=== PATIENT | male | born 1965 | race Caucasian/White ===

== ENCOUNTER 2018-02-02 15:45 | Observation (INO) | payer MEDICAID ==
[~2018-02-02] VITALS: Ht 188 cm; Wt 58.2 kg
[2018-02-02 17:07] LABS: ALANINE AMINOTRANSFERASE 104 U/L (12-78); ALBUMIN 3.2 g/dL (3.4-5.0); ANION GAP 13 mmol/L (5-15); CALCIUM 9.2 mg/dL (8.5-10.1); CHLORIDE 95 mmol/L (98-107)
[2018-02-02 17:09] LABS: ALKALINE PHOSPHATASE 200 U/L (45-117); TOTAL PROTEIN 10.5 g/dL (6.4-8.2)
[2018-02-02 17:18] LABS: MEAN CORPUSCULAR HEMOGLOBIN 32.4 pg (27.5-34.5); MEAN CORPUSCULAR HGB CONC 33.3 g/dL (33.2-36.2); MEAN CORPUSCULAR VOLUME 97.3 fL (81-97); MEAN PLATELET VOLUME 9.9 fL (7.4-10.4); PLATELET COUNT 100 x10^3/uL (130-400); RED BLOOD COUNT 4.38 x10^6/uL (4.38-5.82); RED CELL DISTRIBUTION WIDTH 18.6 % (9.4-14.8)
[2018-02-02 17:22] LABS: BASOPHILS # (AUTO) 0.05 x10^3/uL (0-0.1); BASOPHILS % (AUTO) 1 % (0-1); EOSINOPHILS % (AUTO) 1 % (1-7); LYMPHOCYTES # (AUTO) 1.02 x10^3/uL (1-3.4); LYMPHOCYTES % (AUTO) 14 % (22-44); MD MORPH REVIEW ONLY; MONOCYTES # (AUTO) 0.76 x10^3/uL (0.2-0.8); MONOCYTES % (AUTO) 10 % (2-9); NEUTROPHILS % (AUTO) 74 % (42-75)
[2018-02-02 17:24] LABS: <PLATELET ESTIMATE> DECREASED; ANISOCYTOSIS 1+; LARGE PLATELETS 1+
[2018-02-02] MEDS ORDERED: FUROSEMIDE 40 MG/4 ML IVPush ONE (18:30)
[2018-02-02] MEDS ORDERED: INSULIN REGULAR 100 UNITS/ML, 3ML VIAL IVPush ONE (18:30)
[2018-02-02] MEDS ORDERED: DEXTROSE 50%, 50ML SYRINGE IVPush ONE (18:30)
[2018-02-02] MEDS ORDERED: ALBUTEROL 0.5%, 20ML NPPB ONE (18:30)
[2018-02-02] MEDS ORDERED: SODIUM BICARB 8.4%, 50ML SYRINGE IVPush ONE (18:30)
[2018-02-02] MEDS ORDERED: ALBUTEROL/IPRATROPIUM 2.5MG/0.5MG, 3 ML ONE (18:31)
[2018-02-02] MEDS ORDERED: DEXTROSE 50%, 50ML SYRINGE ONE (18:35)
[2018-02-02] MEDS ORDERED: FUROSEMIDE 40 MG/4 ML ONE (18:35)
[2018-02-02] MEDS ORDERED: INSULIN REGULAR 100 UNITS/ML, 3ML VIAL ONE (18:37)
[2018-02-02] MEDS ORDERED: SODIUM BICARB 8.4%, 50ML SYRINGE ONE (18:37)
[2018-02-02] MEDS ORDERED: NICOTINE 21 MG/24 HR PATCH.TD24 TD SCH (19:00)
[2018-02-02] MEDS ORDERED: POLYETHYLENE GLYCOL 17 GM PACKET PO PRN (19:00)
[2018-02-02] MEDS ORDERED: ONDANSETRON ODT 4 MG PO PRN (19:00)
[2018-02-02] MEDS ORDERED: BISACODYL 10 MG SUPP PR PRN (19:00)
[2018-02-02] MEDS ORDERED: ACETAMINOPHEN 325 MG TABLET PO PRN (19:00)
[2018-02-02 19:18] VITALS: BP 111/55
[2018-02-02] MEDS ORDERED: HEPARIN 5,000 UNITS/ML, 1ML SQ SCH (20:00)
[2018-02-02] MEDS ORDERED: SODIUM CHLORIDE FLUSH 10ML SYR IVF SCH (21:00)
[2018-02-03] MEDS ORDERED: ASPIRIN 81 MG TABLET EC PO SCH (06:00)
[2018-02-03] MEDS ORDERED: SENNA/DOCUSATE TABLET PO SCH (09:00)
== END 2018-02-02 20:33 | disposition left against medical advice (07) ==
LOC: ED 17:18 → EDIP 18:30 → 4WST 20:00
PROVIDERS: ADMIT Internal Medicine; ATTEND Internal Medicine
DX: N18.6 End stage renal disease (principal); E11.22 Type 2 diabetes mellitus with diabetic chronic kidney disease; E11.51 Type 2 diabetes mellitus with diabetic peripheral angiopathy without gangrene; E44.1 Mild protein-calorie malnutrition; I50.22 Chronic systolic (congestive) heart failure; E87.1 Hypo-osmolality and hyponatremia; E87.5 Hyperkalemia; F17.210 Nicotine dependence, cigarettes, uncomplicated; D69.6 Thrombocytopenia, unspecified; R17 Unspecified jaundice; Z79.4 Long term (current) use of insulin; Z83.3 Family history of diabetes mellitus; Z99.2 Dependence on renal dialysis; D75.89 Other specified diseases of blood and blood-forming organs
CPT/HCPCS: 36415; 80053; 82607; 82746; 85025; 93005; 94640; 96374; 96375; 99284; G0378; J1940

== ENCOUNTER 2018-02-03 15:45 | Emergency (ER) | payer MEDICAID ==
[~2018-02-03] VITALS: Ht 188 cm; Wt 58.4 kg
[2018-02-03 16:04] VITALS: BP 111/51
[2018-02-03 16:38] LABS: BASOPHILS # (AUTO) 0.03 x10^3/uL (0-0.1); BASOPHILS % (AUTO) 0 % (0-1); EOSINOPHILS # (AUTO) 0.11 x10^3/uL (0-0.4); EOSINOPHILS % (AUTO) 1 % (1-7); LYMPHOCYTES # (AUTO) 1.02 x10^3/uL (1-3.4); LYMPHOCYTES % (AUTO) 13 % (22-44); MD NO; MEAN CORPUSCULAR HEMOGLOBIN 32.7 pg (27.5-34.5); MEAN CORPUSCULAR HGB CONC 33.4 g/dL (33.2-36.2); MEAN CORPUSCULAR VOLUME 97.9 fL (81-97); MEAN PLATELET VOLUME 9.9 fL (7.4-10.4); MONOCYTES # (AUTO) 0.65 x10^3/uL (0.2-0.8); MONOCYTES % (AUTO) 8 % (2-9); NEUTROPHILS # (AUTO) 5.93 x10^3/uL (1.8-6.8); NEUTROPHILS % (AUTO) 77 % (42-75); PLATELET COUNT 104 x10^3/uL (130-400); RED BLOOD COUNT 4.17 x10^6/uL (4.38-5.82); RED CELL DISTRIBUTION WIDTH 18.8 % (9.4-14.8)
[2018-02-03 16:50] LABS: ANION GAP 15 mmol/L (5-15); CALCIUM 9.2 mg/dL (8.5-10.1); CHLORIDE 98 mmol/L (98-107); CREATININE 6.66 mg/dL (0.7-1.3)
[2018-02-03] MEDS ORDERED: SODIUM CHLORIDE 0.9% 1,000 ML IV ONE (18:13)
[2018-02-03] MEDS ORDERED: SODIUM CHLORIDE FLUSH 10ML SYR IVF ONE (18:30)
[2018-02-03] MEDS ORDERED: ONDANSETRON 2MG/ML, 2ML IVPush ONE (18:30)
[2018-02-03 18:44] LABS: BILIRUBIN, DIRECT 1.6 mg/dL (0.1-0.2)
[2018-02-03 18:46] LABS: BILIRUBIN,INDIRECT 0.4 mg/dL (0.0-2.0); TOTAL PROTEIN 9.8 g/dL (6.4-8.2)
[2018-02-03] MEDS ORDERED: OMNIPAQUE 350 MG/ML, 100ML BOTTLE ONE (19:52)
[2018-02-03] MEDS ORDERED: SODIUM BICARBONATE 650 MG TABLET PO ONE (20:30)
[2018-02-03] MEDS: MORPHINE SULFATE 4 MG/ML, 1ML IVPush PRN (20:32)
[2018-02-04] MEDS ORDERED: ACET325S PO (17:16)
[2018-02-04] MEDS ORDERED: DIPH25CA61 PO (17:20)
[2018-02-04] MEDS ORDERED: AMIO100T4 PO (17:20)
[2018-02-04] MEDS ORDERED: DOCU100C33 PO (17:20)
[2018-02-04] MEDS ORDERED: ERGO500017 PO (17:20)
[2018-02-04] MEDS ORDERED: METO25TA35 PO (17:22)
== END 2018-02-03 21:45 ==
LOC: ED 19:08
DX: S36.892A Contusion of other intra-abdominal organs, initial encounter (principal); E11.22 Type 2 diabetes mellitus with diabetic chronic kidney disease; N18.6 End stage renal disease; Z99.2 Dependence on renal dialysis; Z91.19 Patient's noncompliance with other medical treatment and regimen; X58.XXXA Exposure to other specified factors, initial encounter; Y93.89 Activity, other specified; Y92.89 Other specified places as the place of occurrence of the external cause; Y99.8 Other external cause status
CPT/HCPCS: 36415; 74177; 80048; 80076; 85025; 93005; 99284; J7030; Q9967; 82040

== ENCOUNTER 2018-02-04 13:10 | Inpatient (IN) | payer MEDICAID ==
[~2018-02-04] VITALS: Ht 188 cm; Wt 58.6 kg
[2018-02-04] MEDS ORDERED: SODIUM CHLORIDE FLUSH 10ML SYR IVF ONE (13:30)
[2018-02-04] MEDS ORDERED: NICOTINE 14MG/24 HR PATCH.TD24 ONE (13:40)
[2018-02-04 13:51] LABS: BASOPHILS # (AUTO) 0.06 x10^3/uL (0-0.1); BASOPHILS % (AUTO) 1 % (0-1); EOSINOPHILS # (AUTO) 0.11 x10^3/uL (0-0.4); EOSINOPHILS % (AUTO) 2 % (1-7); LYMPHOCYTES # (AUTO) 0.98 x10^3/uL (1-3.4); LYMPHOCYTES % (AUTO) 13 % (22-44); MD NO; MEAN CORPUSCULAR HEMOGLOBIN 32.5 pg (27.5-34.5); MEAN CORPUSCULAR HGB CONC 33.7 g/dL (33.2-36.2); MEAN CORPUSCULAR VOLUME 96.5 fL (81-97); MONOCYTES # (AUTO) 0.53 x10^3/uL (0.2-0.8); MONOCYTES % (AUTO) 7 % (2-9); NEUTROPHILS # (AUTO) 5.84 x10^3/uL (1.8-6.8); NEUTROPHILS % (AUTO) 78 % (42-75); PLATELET COUNT 120 x10^3/uL (130-400); RED CELL DISTRIBUTION WIDTH 18.4 % (9.4-14.8)
[2018-02-04 13:56] LABS: ALANINE AMINOTRANSFERASE 84 U/L (12-78); ALBUMIN 2.9 g/dL (3.4-5.0); ANION GAP 14 mmol/L (5-15); CALCIUM 9.2 mg/dL (8.5-10.1); CHLORIDE 99 mmol/L (98-107); CREATININE 6.99 mg/dL (0.7-1.3)
[2018-02-04 13:59] LABS: ALKALINE PHOSPHATASE 188 U/L (45-117); TOTAL PROTEIN 9.4 g/dL (6.4-8.2)
[2018-02-04] MEDS ORDERED: NICOTINE 14MG/24 HR PATCH.TD24 TD ONE (14:00)
[2018-02-04] MEDS ORDERED: NICOTINE 21 MG/24 HR PATCH.TD24 TD SCH (16:30)
[2018-02-04] MEDS ORDERED: ACETAMINOPHEN 325 MG TABLET PO PRN (16:30)
[2018-02-04] MEDS ORDERED: LIDODERM 5% PATCH TD PRN (16:30)
[2018-02-04] MEDS ORDERED: DEXTROSE 50%, 50ML SYRINGE IVPush PRN (16:30)
[2018-02-04] MEDS ORDERED: HEPARIN 5,000 UNITS/ML, 1ML SQ SCH (16:30)
[2018-02-04] MEDS ORDERED: GLUCAGON 1 MG IM PRN (16:30)
[2018-02-04] MEDS ORDERED: POLYETHYLENE GLYCOL 17 GM PACKET PO PRN (16:30)
[2018-02-04] MEDS ORDERED: DEXTROSE 4 GM TAB.CHEW PO PRN (16:30)
[2018-02-04] MEDS ORDERED: ONDANSETRON 2MG/ML, 2ML IVPush PRN (16:30)
[2018-02-04] MEDS ORDERED: BISACODYL 10 MG SUPP PR PRN (16:30)
[2018-02-04] MEDS ORDERED: ONDANSETRON ODT 4 MG PO PRN (16:30)
[2018-02-04] MEDS ORDERED: hydrALAzine 20 MG/ML, 1ML IVPush PRN (16:30)
[2018-02-04] MEDS ORDERED: DOCUSATE 100 MG CAPSULE PO PRN (16:30)
[2018-02-04] MEDS ORDERED: ACET325S PO (17:16)
[2018-02-04] MEDS ORDERED: ERGO500017 PO (17:20)
[2018-02-04] MEDS ORDERED: DIPH25CA61 PO (17:20)
[2018-02-04] MEDS ORDERED: AMIO100T4 PO (17:20)
[2018-02-04] MEDS ORDERED: DOCU100C33 PO (17:20)
[2018-02-04] MEDS ORDERED: METO25TA35 PO (17:22)
[2018-02-04] MEDS ORDERED: DIPHENHYDRAMINE 25 MG CAPSULE ONE (17:46)
[2018-02-04] MEDS ORDERED: DIPHENHYDRAMINE 25 MG CAPSULE PO ONE (18:00)
[2018-02-04] MEDS ORDERED: ERGOCALCIFEROL 50,000 UNIT CAPSULE PO SCH (19:00)
[2018-02-04 19:21] VITALS: BP 131/73
[2018-02-04] MEDS ORDERED: SODIUM CHLORIDE FLUSH 10ML SYR IVF SCH (21:00)
[2018-02-04] MEDS ORDERED: INSULIN LISPRO 100 UNITS/ML, PEN SQ-INSULIN SCH (21:00)
[2018-02-04] MEDS ORDERED: METOPROLOL TARTRATE 25 MG TABLET PO SCH (21:00)
[2018-02-05] MEDS ORDERED: AMIODARONE 200 MG TABLET PO SCH (09:00)
== END 2018-02-04 22:00 | disposition left against medical advice (07) | DRG 640 ==
LOC: ED 15:17 → EDIP 15:18 → ED 15:30 → 4EST 16:27
PROVIDERS: ADMIT Internal Medicine; ATTEND Internal Medicine
PROC: 5A1D70Z Performance of Urinary Filtration, Intermittent, Less than 6 Hours Per Day (ICD-10-PCS; principal; 2018-02-04)
DX: E87.5 Hyperkalemia (principal); E43 Unspecified severe protein-calorie malnutrition; N18.6 End stage renal disease; K66.1 Hemoperitoneum; Z68.1 Body mass index [BMI] 19.9 or less, adult; I13.2 Hypertensive heart and chronic kidney disease with heart failure and with stage 5 chronic kidney disease, or end stage renal disease; I50.42 Chronic combined systolic (congestive) and diastolic (congestive) heart failure; K76.6 Portal hypertension; N25.81 Secondary hyperparathyroidism of renal origin; D64.9 Anemia, unspecified; D69.6 Thrombocytopenia, unspecified; E11.22 Type 2 diabetes mellitus with diabetic chronic kidney disease; E11.51 Type 2 diabetes mellitus with diabetic peripheral angiopathy without gangrene; E55.9 Vitamin D deficiency, unspecified; F17.210 Nicotine dependence, cigarettes, uncomplicated; I48.91 Unspecified atrial fibrillation; K80.20 Calculus of gallbladder without cholecystitis without obstruction; L89.159 Pressure ulcer of sacral region, unspecified stage; Z83.3 Family history of diabetes mellitus; Z86.74 Personal history of sudden cardiac arrest; Z91.19 Patient's noncompliance with other medical treatment and regimen; W18.39XA Other fall on same level, initial encounter; Y93.89 Activity, other specified; Y92.89 Other specified places as the place of occurrence of the external cause; Y99.8 Other external cause status; S09.90XA Unspecified injury of head, initial encounter; Z53.21 Procedure and treatment not carried out due to patient leaving prior to being seen by health care provider
CPT/HCPCS: 36415; 70450; 80053; 82962; 83735; 84100; 85025; 93005; 99285; G0378; Q0163

== ENCOUNTER 2018-02-11 15:37 | Emergency (ER) | payer MEDICAID ==
[~2018-02-11] VITALS: Ht 188 cm; Wt 63.9 kg
[~2018-02-11 15:37] MED LIST: ACET325S PO; AMIO100T4 PO; DIPH25CA61 PO; DOCU100C33 PO; ERGO500017 PO; METO25TA35 PO
[2018-02-11 17:00] LABS: BASOPHILS # (AUTO) 0.02 x10^3/uL (0-0.1); BASOPHILS % (AUTO) 0 % (0-1); EOSINOPHILS # (AUTO) 0.08 x10^3/uL (0-0.4); EOSINOPHILS % (AUTO) 1 % (1-7); LYMPHOCYTES # (AUTO) 0.54 x10^3/uL (1-3.4); LYMPHOCYTES % (AUTO) 7 % (22-44); MD NO; MEAN CORPUSCULAR VOLUME 96.9 fL (81-97); MEAN PLATELET VOLUME 8.8 fL (7.4-10.4); MONOCYTES # (AUTO) 0.74 x10^3/uL (0.2-0.8); MONOCYTES % (AUTO) 10 % (2-9); NEUTROPHILS # (AUTO) 6.21 x10^3/uL (1.8-6.8); NEUTROPHILS % (AUTO) 82 % (42-75); PLATELET COUNT 148 x10^3/uL (130-400); RED BLOOD COUNT 3.17 x10^6/uL (4.38-5.82); RED CELL DISTRIBUTION WIDTH 17.4 % (9.4-14.8)
[2018-02-11 17:10] LABS: ALANINE AMINOTRANSFERASE 28 U/L (12-78); ALBUMIN 2.4 g/dL (3.4-5.0); ANION GAP 9 mmol/L (5-15); CALCIUM 8.5 mg/dL (8.5-10.1); CHLORIDE 102 mmol/L (98-107); CREATININE 4.25 mg/dL (0.7-1.3)
[2018-02-11 17:12] LABS: ALKALINE PHOSPHATASE 155 U/L (45-117); BILIRUBIN,TOTAL 1.5 mg/dL (0.2-1.0); TOTAL PROTEIN 8.1 g/dL (6.4-8.2)
[2018-02-11 18:00] VITALS: BP 131/69
== END 2018-02-11 18:27 | disposition home or self-care (01) ==
LOC: ED 18:06
DX: R53.1 Weakness (principal); E11.22 Type 2 diabetes mellitus with diabetic chronic kidney disease; N18.9 Chronic kidney disease, unspecified; F17.200 Nicotine dependence, unspecified, uncomplicated; E11.21 Type 2 diabetes mellitus with diabetic nephropathy
CPT/HCPCS: 36415; 71045; 80053; 83605; 85025; 87040; 93005; 99284

== ENCOUNTER 2018-02-11 23:13 | Emergency (ER) | payer MEDICAID ==
[~2018-02-11] VITALS: Ht 188 cm; Wt 62.0 kg
[2018-02-12] MEDS ORDERED: DIPHENHYDRAMINE 25 MG CAPSULE ONE (02:16)
[2018-02-12] MEDS ORDERED: DIPHENHYDRAMINE 25 MG CAPSULE PO ONE (02:30)
[2018-02-12 03:16] VITALS: BP 120/64
== END 2018-02-12 04:31 | disposition home or self-care (01) ==
LOC: ED 23:51
DX: L89.151 Pressure ulcer of sacral region, stage 1 (principal); Z00.00 Encounter for general adult medical examination without abnormal findings; Z72.9 Problem related to lifestyle, unspecified; E11.22 Type 2 diabetes mellitus with diabetic chronic kidney disease; N18.6 End stage renal disease; F17.200 Nicotine dependence, unspecified, uncomplicated; E11.21 Type 2 diabetes mellitus with diabetic nephropathy; I70.90 Unspecified atherosclerosis
CPT/HCPCS: 93005; 99283; Q0163

== ENCOUNTER 2018-03-05 20:36 | Inpatient (IN) | payer MEDICAID ==
[~2018-03-05] VITALS: Ht 188 cm; Wt 60.2 kg
--- NOTE | 2018-03-05 22:37 | NUR ---
ATTEMPTED TO REMOVED B/L FOOT DRSG, DRSG STUCK TO WOUND, PT SOAKING FEET TO LOOSEN DRSG.
--- NOTE | 2018-03-05 22:39 | NUR ---
LATE ENTRY 2100- BIB [facility] FOR C/O RIGHT LOWER CP THAT RADIATES TO B/L SIDES THAT STARTED AT 1999 TODAY, PAIN WORSE WITH PALPATION, DENIES SOB, INJURY OR CARDIAC H/X. FSBS-195, B/P-119/60, HR-100, PER EMT EKG-SR. PT ALSO PRESENTS WITH NON HEALING WOUND TO RIGHT FOOT. MONITORS APPLIED, SIDERAILS UP X2, CALL LIGHT WITHIN REACH. AWAITING ERP FOR EVAL AND ORDERS
--- NOTE | 2018-03-05 23:27 | NUR ---
WATER TREATMENT TECHNICIAN AT BEDSIDE
[2018-03-05] MEDS ORDERED: MORPHINE SULFATE 4 MG/ML, 1ML IV PRN (23:30)
[2018-03-05] MEDS ORDERED: DIPH,PERTUSS(ACELL),TET VAC/PF 0.5 ML IM-VACC ONE ×2 (23:30→23:57)
[2018-03-05] MEDS ORDERED: VANCOMYCIN PER PHARMACY IV ONE (23:30)
[2018-03-05] MEDS ORDERED: SODIUM CHLORIDE FLUSH 10ML SYR IVF ONE (23:30)
[2018-03-05] MEDS ORDERED: AMPICILLIN/SULBACTAM 3 GM in SODIUM CHLORIDE 0.9% 100 ML IVPB ONE (23:30)
--- NOTE | 2018-03-06 00:24 | NUR ---
LAB NOTES THAT THE VISIT NUMBER HAS CHANGED, THE LABS ARE RESULTED UNDER LIFETIME SUMMARY, ONLY SHOWING ONE VISIT FOR THIS DATE. REGISTRATION IS UNAWARE OF WHAT MAY HAVE OCCURRED.
[2018-03-06] MEDS ORDERED: hydrALAzine 20 MG/ML, 1ML IVPush PRN (00:30)
[2018-03-06] MEDS ORDERED: LIDODERM 5% PATCH TD PRN (00:30)
[2018-03-06] MEDS ORDERED: VANCOMYCIN PER PHARMACY MC PRN (00:30)
[2018-03-06] MEDS ORDERED: ONDANSETRON ODT 4 MG PO PRN (00:30)
[2018-03-06] MEDS ORDERED: PHARMACY MAY ADJ FOR RENAL FX MC PRN (00:30)
[2018-03-06] MEDS: HEPARIN 5,000 UNITS/ML, 1ML SQ SCH ×3 (01:00→16:13)
[2018-03-06 01:23] VITALS: BP 127/68
[2018-03-06 01:31] VITALS: BP 127/68
[2018-03-06] MEDS ORDERED: PHARMACOKINETIC MONITORING MC PRN (02:00)
[2018-03-06] MEDS ORDERED: PHARMACOKINETIC CONSULTATION MC ONE (02:00)
[2018-03-06 02:16] LABS: SEDIMENTATION RATE > 120 mm/hr (0-10)
[2018-03-06] MEDS: NICOTINE 21 MG/24 HR PATCH.TD24 TD SCH (02:16)
[2018-03-06 02:45] LABS: HCT (SEDRATE) 26.3 % (39.2-51.8)
[2018-03-06] MEDS ORDERED: VANCOMYCIN 1,000 MG in SODIUM CHLORIDE 0.9% 100 ML IV ONE (03:00)
[2018-03-06 03:21] LABS: TROPONIN I < 0.015 ng/mL (0.000-0.045)
[2018-03-06] MEDS ORDERED: VANCOMYCIN PMX 1GM/200ML 200 ML IV ONE (03:30)
[2018-03-06] MEDS: AMPICILLIN/SULBACTAM 3 GM in SODIUM CHLORIDE 0.9% 100 ML IV SCH ×3 (05:57→22:13)
[2018-03-06 08:06] VITALS: BP 132/76
[2018-03-06 09:59] LABS: MEAN CORPUSCULAR HEMOGLOBIN 31.8 pg (27.5-34.5); MEAN CORPUSCULAR HGB CONC 33.5 g/dL (33.2-36.2); MEAN CORPUSCULAR VOLUME 94.8 fL (81-97); MEAN PLATELET VOLUME 7.8 fL (7.4-10.4); PLATELET COUNT 162 x10^3/uL (130-400); RED BLOOD COUNT 2.59 x10^6/uL (4.38-5.82)
[2018-03-06 10:02] LABS: ALANINE AMINOTRANSFERASE 14 U/L (12-78); ALBUMIN 1.7 g/dL (3.4-5.0); ANION GAP 10 mmol/L (5-15); CALCIUM 7.9 mg/dL (8.5-10.1); CHLORIDE 102 mmol/L (98-107); CREATININE 3.86 mg/dL (0.7-1.3)
[2018-03-06 10:06] LABS: ALKALINE PHOSPHATASE 127 U/L (45-117); BILIRUBIN,TOTAL 0.9 mg/dL (0.2-1.0); TOTAL PROTEIN 7.5 g/dL (6.4-8.2); TROPONIN I < 0.015 ng/mL (0.000-0.045)
[2018-03-06 10:40] LABS: BASOPHILS % (AUTO) 0 % (0-1); EOSINOPHILS # (AUTO) 0.07 x10^3/uL (0-0.4); EOSINOPHILS % (AUTO) 0 % (1-7); LYMPHOCYTES # (AUTO) 1.12 x10^3/uL (1-3.4); LYMPHOCYTES % (AUTO) 7 % (22-44); MD SCAN; MONOCYTES # (AUTO) 0.99 x10^3/uL (0.2-0.8); MONOCYTES % (AUTO) 7 % (2-9); NEUTROPHILS # (AUTO) 13.03 x10^3/uL (1.8-6.8); NEUTROPHILS % (AUTO) 86 % (42-75)
[2018-03-06] MEDS ORDERED: ARANESP 60 MCG/ML **ESRD SQ SCH (12:00)
[2018-03-06 12:53] VITALS: BP 126/76
[2018-03-06] MEDS ORDERED: POTASSIUM CHLORIDE 20 MEQ TAB.ER.PRT PO ONE (13:30)
[2018-03-06 20:00] VITALS: BP 135/71
[2018-03-07] MEDS: HEPARIN 5,000 UNITS/ML, 1ML SQ SCH ×3 (01:00→09:18)
[2018-03-07] MEDS: NICOTINE 21 MG/24 HR PATCH.TD24 TD SCH (01:18)
[2018-03-07 01:37] VITALS: BP 109/54
[2018-03-07 05:47] LABS: CLOSTRIDIUM DIFFICILE ANTIGEN POSITIVE; CLOSTRIDIUM DIFFICILE TOXIN POSITIVE (Negative)
[2018-03-07 05:50] LABS: ALBUMIN 1.6 g/dL (3.4-5.0); ANION GAP 7 mmol/L (5-15); CALCIUM 7.8 mg/dL (8.5-10.1); CHLORIDE 102 mmol/L (98-107); CREATININE 4.23 mg/dL (0.7-1.3)
[2018-03-07 05:53] LABS: VANCOMYCIN,RANDOM 13.1 mcg/mL
[2018-03-07 06:00] LABS: MEAN CORPUSCULAR HGB CONC 33.7 g/dL (33.2-36.2); MEAN PLATELET VOLUME 8.2 fL (7.4-10.4); PLATELET COUNT 174 x10^3/uL (130-400); RED BLOOD COUNT 2.66 x10^6/uL (4.38-5.82); RED CELL DISTRIBUTION WIDTH 14.9 % (9.4-14.8)
[2018-03-07] MEDS ORDERED: VANCOMYCIN PMX 1GM/200ML 200 ML IV ONE (06:00)
[2018-03-07] MEDS: METOPROLOL SUCCINATE 25 MG TAB.ER.24H PO SCH (06:13)
[2018-03-07 06:37] LABS: BASOPHILS # (AUTO) 0.02 x10^3/uL (0-0.1); BASOPHILS % (AUTO) 0 % (0-1); EOSINOPHILS # (AUTO) 0.08 x10^3/uL (0-0.4); EOSINOPHILS % (AUTO) 1 % (1-7); LYMPHOCYTES # (AUTO) 1.24 x10^3/uL (1-3.4); LYMPHOCYTES % (AUTO) 10 % (22-44); MD SCAN; MONOCYTES # (AUTO) 0.77 x10^3/uL (0.2-0.8); MONOCYTES % (AUTO) 6 % (2-9); NEUTROPHILS # (AUTO) 10.76 x10^3/uL (1.8-6.8); NEUTROPHILS % (AUTO) 84 % (42-75)
[2018-03-07] MEDS: AMPICILLIN/SULBACTAM 3 GM in SODIUM CHLORIDE 0.9% 100 ML IV SCH (07:28)
[2018-03-07 07:49] VITALS: BP 121/73
[2018-03-07] MEDS: LISINOPRIL 5 MG TABLET PO SCH (09:58)
[2018-03-07] MEDS: MEROPENEM 500 MG in SODIUM CHLORIDE 0.9% 100 ML IV SCH (13:22)
[2018-03-07] MEDS: VANCOMYCIN 50 MG/ML ORAL SUSP PO SCH ×2 (13:22→20:03)
[2018-03-07 14:13] VITALS: BP 125/73
[2018-03-07] MEDS: DIPHENHYDRAMINE 50 MG CAPSULE PO PRN (18:17)
[2018-03-07] MEDS ORDERED: AMPICILLIN/SULBACTAM 3 GM in SODIUM CHLORIDE 0.9% 100 ML IV SCH (19:00)
[2018-03-07 21:04] VITALS: BP 122/76
[2018-03-08] MEDS: HEPARIN 5,000 UNITS/ML, 1ML SQ SCH ×3 (01:00→17:00)
[2018-03-08 01:56] VITALS: BP 118/73
[2018-03-08] MEDS: NICOTINE 21 MG/24 HR PATCH.TD24 TD SCH (02:21)
[2018-03-08] MEDS: VANCOMYCIN 50 MG/ML ORAL SUSP PO SCH ×4 (02:21→22:44)
[2018-03-08 06:10] VITALS: BP 122/70
[2018-03-08] MEDS: METOPROLOL SUCCINATE 25 MG TAB.ER.24H PO SCH (06:11)
[2018-03-08 07:44] VITALS: BP 117/68
[2018-03-08] MEDS: LISINOPRIL 5 MG TABLET PO SCH (09:00)
[2018-03-08 10:40] LABS: MEAN CORPUSCULAR HEMOGLOBIN 32.1 pg (27.5-34.5); MEAN CORPUSCULAR HGB CONC 33.9 g/dL (33.2-36.2); MEAN CORPUSCULAR VOLUME 94.6 fL (81-97); MEAN PLATELET VOLUME 8.4 fL (7.4-10.4); PLATELET COUNT 179 x10^3/uL (130-400); RED BLOOD COUNT 2.45 x10^6/uL (4.38-5.82); RED CELL DISTRIBUTION WIDTH 14.7 % (9.4-14.8)
[2018-03-08 10:41] LABS: ANION GAP 7 mmol/L (5-15); CHLORIDE 101 mmol/L (98-107); CREATININE 4.95 mg/dL (0.7-1.3)
[2018-03-08] MEDS ORDERED: DAPTOMYCIN IV SCH (11:00)
[2018-03-08] MEDS ORDERED: SODIUM CHLORIDE 0.9% IV SCH (11:00)
[2018-03-08 11:12] LABS: BASOPHILS # (AUTO) 0.03 x10^3/uL (0-0.1); BASOPHILS % (AUTO) 0 % (0-1); EOSINOPHILS # (AUTO) 0.18 x10^3/uL (0-0.4); EOSINOPHILS % (AUTO) 2 % (1-7); LYMPHOCYTES # (AUTO) 0.89 x10^3/uL (1-3.4); LYMPHOCYTES % (AUTO) 8 % (22-44); MD SCAN; MONOCYTES # (AUTO) 0.65 x10^3/uL (0.2-0.8); MONOCYTES % (AUTO) 6 % (2-9); NEUTROPHILS # (AUTO) 9.01 x10^3/uL (1.8-6.8); NEUTROPHILS % (AUTO) 84 % (42-75)
[2018-03-08] MEDS: MEROPENEM 500 MG in SODIUM CHLORIDE 0.9% 100 ML IV SCH (11:53)
[2018-03-08] MEDS ORDERED: SEVELAMER HCL 800MG TABLET PO SCH (12:00)
[2018-03-08 12:36] VITALS: BP 122/73
[2018-03-08] MEDS: SEVELAMER CARBONATE 800MG TAB PO SCH ×2 (12:56→18:01)
[2018-03-08] MEDS: DIPHENHYDRAMINE 50 MG CAPSULE PO PRN (15:02)
[2018-03-08 21:18] VITALS: BP 127/68
[2018-03-09] MEDS: HEPARIN 5,000 UNITS/ML, 1ML SQ SCH ×3 (00:50→17:00)
[2018-03-09] MEDS: DIPHENHYDRAMINE 50 MG CAPSULE PO PRN ×2 (00:56→13:59)
[2018-03-09] MEDS: NICOTINE 21 MG/24 HR PATCH.TD24 TD SCH (00:57)
[2018-03-09 03:30] VITALS: BP 116/63
[2018-03-09 05:36] VITALS: BP 131/74
[2018-03-09] MEDS: VANCOMYCIN 50 MG/ML ORAL SUSP PO SCH ×3 (05:37→18:23)
[2018-03-09] MEDS: METOPROLOL SUCCINATE 25 MG TAB.ER.24H PO SCH (05:37)
[2018-03-09 05:43] LABS: BASOPHILS # (AUTO) 0.01 x10^3/uL (0-0.1); BASOPHILS % (AUTO) 0 % (0-1); EOSINOPHILS # (AUTO) 0.09 x10^3/uL (0-0.4); EOSINOPHILS % (AUTO) 1 % (1-7); LYMPHOCYTES # (AUTO) 0.95 x10^3/uL (1-3.4); LYMPHOCYTES % (AUTO) 10 % (22-44); MD NO; MEAN CORPUSCULAR HEMOGLOBIN 32.7 pg (27.5-34.5); MEAN CORPUSCULAR HGB CONC 34.6 g/dL (33.2-36.2); MEAN CORPUSCULAR VOLUME 94.5 fL (81-97); MEAN PLATELET VOLUME 8.5 fL (7.4-10.4); MONOCYTES # (AUTO) 0.68 x10^3/uL (0.2-0.8); MONOCYTES % (AUTO) 7 % (2-9); NEUTROPHILS # (AUTO) 8.06 x10^3/uL (1.8-6.8); NEUTROPHILS % (AUTO) 82 % (42-75); PLATELET COUNT 179 x10^3/uL (130-400); RED BLOOD COUNT 2.44 x10^6/uL (4.38-5.82); RED CELL DISTRIBUTION WIDTH 14.4 % (9.4-14.8)
[2018-03-09 05:56] LABS: ANION GAP 7 mmol/L (5-15); CALCIUM 7.8 mg/dL (8.5-10.1); CHLORIDE 102 mmol/L (98-107); CREATININE 3.24 mg/dL (0.7-1.3)
[2018-03-09 08:03] VITALS: BP 123/71
[2018-03-09] MEDS: SEVELAMER CARBONATE 800MG TAB PO SCH ×3 (08:22→17:00)
[2018-03-09] MEDS: LISINOPRIL 5 MG TABLET PO SCH (08:22)
[2018-03-09] MEDS ORDERED: PROPOFOL 10 MG/ML, 20ML ONE (10:05)
[2018-03-09] MEDS: MEROPENEM 500 MG in SODIUM CHLORIDE 0.9% 100 ML IV SCH (12:14)
[2018-03-09 14:46] VITALS: BP 126/74
[2018-03-09] MEDS ORDERED: hydrALAzine 20 MG/ML, 1ML IV PRN (19:00)
[2018-03-09] MEDS ORDERED: LABETALOL 5MG/ML, 20ML IV PRN (19:00)
[2018-03-09] MEDS ORDERED: DIPHENHYDRAMINE 50 MG/ML, 1ML IVPush PRN (19:00)
[2018-03-09] MEDS ORDERED: PROMETHAZINE 25 MG/ML, 1ML IV PRN (19:00)
[2018-03-09] MEDS ORDERED: HALOPERIDOL 5 MG/ML IV PRN (19:00)
[2018-03-09] MEDS ORDERED: METOPROLOL 1 MG/ML, 5ML IV PRN (19:00)
[2018-03-09] MEDS ORDERED: FENTANYL PF 100 MCG/2ML IV PRN (19:00)
[2018-03-09] MEDS ORDERED: FENTANYL PF 100 MCG/2ML ONE ×2 (20:06→20:43)
[2018-03-09] MEDS ORDERED: HYDROmorphone 2 MG/ML, 1ML ONE (20:43)
[2018-03-09] MEDS ORDERED: OXYcodone 5 MG/5 ML ORAL.SOL UDC ONE (20:43)
[2018-03-09 21:30] VITALS: BP 120/75
[2018-03-10] MEDS: VANCOMYCIN 50 MG/ML ORAL SUSP PO SCH ×4 (00:21→17:59)
[2018-03-10] MEDS: NICOTINE 21 MG/24 HR PATCH.TD24 TD SCH (00:21)
[2018-03-10] MEDS: HEPARIN 5,000 UNITS/ML, 1ML SQ SCH ×3 (00:22→17:59)
[2018-03-10] MEDS: DIPHENHYDRAMINE 50 MG CAPSULE PO PRN ×2 (00:49→20:30)
[2018-03-10 02:19] VITALS: BP 120/72
[2018-03-10] MEDS: METOPROLOL SUCCINATE 25 MG TAB.ER.24H PO SCH (06:03)
[2018-03-10 06:26] LABS: BASOPHILS # (AUTO) 0.04 x10^3/uL (0-0.1); BASOPHILS % (AUTO) 0 % (0-1); EOSINOPHILS # (AUTO) 0.11 x10^3/uL (0-0.4); EOSINOPHILS % (AUTO) 1 % (1-7); LYMPHOCYTES # (AUTO) 0.96 x10^3/uL (1-3.4); LYMPHOCYTES % (AUTO) 9 % (22-44); MD NO; MEAN CORPUSCULAR HEMOGLOBIN 32.6 pg (27.5-34.5); MEAN CORPUSCULAR HGB CONC 34.1 g/dL (33.2-36.2); MEAN CORPUSCULAR VOLUME 95.5 fL (81-97); MONOCYTES # (AUTO) 0.65 x10^3/uL (0.2-0.8); MONOCYTES % (AUTO) 6 % (2-9); NEUTROPHILS # (AUTO) 9.46 x10^3/uL (1.8-6.8); NEUTROPHILS % (AUTO) 84 % (42-75); PLATELET COUNT 196 x10^3/uL (130-400); RED BLOOD COUNT 2.47 x10^6/uL (4.38-5.82)
[2018-03-10 06:29] LABS: ANION GAP 8 mmol/L (5-15); CALCIUM 7.9 mg/dL (8.5-10.1); CHLORIDE 103 mmol/L (98-107)
[2018-03-10 07:26] VITALS: BP 124/75
[2018-03-10] MEDS: SEVELAMER CARBONATE 800MG TAB PO SCH ×3 (09:21→17:59)
[2018-03-10] MEDS: LISINOPRIL 5 MG TABLET PO SCH (09:22)
[2018-03-10] MEDS: MEROPENEM 500 MG in SODIUM CHLORIDE 0.9% 100 ML IV SCH (12:49)
[2018-03-10 13:42] VITALS: BP 126/78
[2018-03-10 19:58] VITALS: BP 134/75
[2018-03-11] MEDS: VANCOMYCIN 50 MG/ML ORAL SUSP PO SCH ×4 (00:23→17:28)
[2018-03-11] MEDS: NICOTINE 21 MG/24 HR PATCH.TD24 TD SCH (00:24)
[2018-03-11] MEDS: HEPARIN 5,000 UNITS/ML, 1ML SQ SCH ×3 (00:24→17:28)
[2018-03-11 01:47] VITALS: BP 125/74
[2018-03-11] MEDS: METOPROLOL SUCCINATE 25 MG TAB.ER.24H PO SCH (05:56)
[2018-03-11 07:48] VITALS: BP 128/76
[2018-03-11] MEDS: SEVELAMER CARBONATE 800MG TAB PO SCH ×3 (09:02→17:27)
[2018-03-11] MEDS: LISINOPRIL 5 MG TABLET PO SCH (09:03)
[2018-03-11] MEDS ORDERED: AMPICILLIN/SULBACTAM 1,500 MG in SODIUM CHLORIDE 0.9% 50 ML IV SCH (10:00)
[2018-03-11] MEDS: DIPHENHYDRAMINE 50 MG CAPSULE PO PRN ×2 (13:24→20:46)
[2018-03-11 14:43] VITALS: BP 132/79
[2018-03-11 19:42] VITALS: BP 129/71
[2018-03-12] MEDS: HEPARIN 5,000 UNITS/ML, 1ML SQ SCH ×3 (00:37→17:56)
[2018-03-12] MEDS: VANCOMYCIN 50 MG/ML ORAL SUSP PO SCH ×4 (00:37→17:56)
[2018-03-12] MEDS: NICOTINE 21 MG/24 HR PATCH.TD24 TD SCH (00:37)
[2018-03-12 01:09] VITALS: BP 136/80
[2018-03-12] MEDS: METOPROLOL SUCCINATE 25 MG TAB.ER.24H PO SCH (06:11)
[2018-03-12 07:35] VITALS: BP 132/78
[2018-03-12] MEDS: DIPHENHYDRAMINE 50 MG CAPSULE PO PRN (08:54)
[2018-03-12] MEDS: SEVELAMER CARBONATE 800MG TAB PO SCH ×3 (08:54→17:56)
[2018-03-12] MEDS: LISINOPRIL 5 MG TABLET PO SCH (08:55)
[2018-03-12] MEDS ORDERED: AMPICILLIN/SULBACTAM 3 GM in SODIUM CHLORIDE 0.9% 50 ML IV SCH (10:00)
[2018-03-12 14:24] VITALS: BP 121/69
[2018-03-12] MEDS: AMPICILLIN/SULBACTAM 3 GM in SODIUM CHLORIDE 0.9% 100 ML IV SCH (15:58)
[2018-03-12 18:50] VITALS: BP 142/78
[2018-03-13] MEDS: VANCOMYCIN 50 MG/ML ORAL SUSP PO SCH ×4 (00:39→19:18)
[2018-03-13] MEDS: HEPARIN 5,000 UNITS/ML, 1ML SQ SCH ×3 (00:39→19:18)
[2018-03-13] MEDS: NICOTINE 21 MG/24 HR PATCH.TD24 TD SCH (00:39)
[2018-03-13] MEDS: DIPHENHYDRAMINE 50 MG CAPSULE PO PRN ×2 (00:51→23:37)
[2018-03-13 01:39] VITALS: BP 128/72
[2018-03-13 05:50] LABS: MEAN CORPUSCULAR HEMOGLOBIN 32.2 pg (27.5-34.5); MEAN CORPUSCULAR HGB CONC 33.6 g/dL (33.2-36.2); MEAN CORPUSCULAR VOLUME 95.8 fL (81-97); MEAN PLATELET VOLUME 8.7 fL (7.4-10.4); PLATELET COUNT 231 x10^3/uL (130-400); RED BLOOD COUNT 2.53 x10^6/uL (4.38-5.82); RED CELL DISTRIBUTION WIDTH 14.9 % (9.4-14.8)
[2018-03-13 06:00] LABS: ANION GAP 5 mmol/L (5-15); CALCIUM 8.3 mg/dL (8.5-10.1); CHLORIDE 101 mmol/L (98-107)
[2018-03-13 06:01] LABS: CREATININE 2.99 mg/dL (0.7-1.3)
[2018-03-13] MEDS: METOPROLOL SUCCINATE 25 MG TAB.ER.24H PO SCH (06:01)
[2018-03-13 06:23] LABS: BASOPHILS # (AUTO) 0.05 x10^3/uL (0-0.1); BASOPHILS % (AUTO) 1 % (0-1); EOSINOPHILS # (AUTO) 0.13 x10^3/uL (0-0.4); EOSINOPHILS % (AUTO) 2 % (1-7); LYMPHOCYTES # (AUTO) 1.75 x10^3/uL (1-3.4); LYMPHOCYTES % (AUTO) 22 % (22-44); MD SCAN; MONOCYTES # (AUTO) 0.64 x10^3/uL (0.2-0.8); MONOCYTES % (AUTO) 8 % (2-9); NEUTROPHILS # (AUTO) 5.56 x10^3/uL (1.8-6.8); NEUTROPHILS % (AUTO) 68 % (42-75)
[2018-03-13 07:48] VITALS: BP 121/70
[2018-03-13] MEDS: SEVELAMER CARBONATE 800MG TAB PO SCH ×3 (08:00→16:55)
[2018-03-13] MEDS: LISINOPRIL 5 MG TABLET PO SCH (08:51)
[2018-03-13 12:32] VITALS: BP 125/69
[2018-03-13] MEDS ORDERED: ARANESP 60 MCG/ML **ESRD SQ SCH (15:47)
[2018-03-13 19:10] VITALS: BP 125/70
[2018-03-14] MEDS: VANCOMYCIN 50 MG/ML ORAL SUSP PO SCH ×4 (00:42→23:09)
[2018-03-14] MEDS: NICOTINE 21 MG/24 HR PATCH.TD24 TD SCH (00:43)
[2018-03-14 02:00] VITALS: BP 120/75
[2018-03-14] MEDS: METOPROLOL SUCCINATE 25 MG TAB.ER.24H PO SCH (05:29)
[2018-03-14 06:05] LABS: BASOPHILS # (AUTO) 0.07 x10^3/uL (0-0.1); BASOPHILS % (AUTO) 1 % (0-1); EOSINOPHILS # (AUTO) 0.08 x10^3/uL (0-0.4); EOSINOPHILS % (AUTO) 1 % (1-7); LYMPHOCYTES # (AUTO) 1.85 x10^3/uL (1-3.4); LYMPHOCYTES % (AUTO) 26 % (22-44); MD NO; MEAN CORPUSCULAR HEMOGLOBIN 31.7 pg (27.5-34.5); MEAN CORPUSCULAR HGB CONC 33.1 g/dL (33.2-36.2); MEAN CORPUSCULAR VOLUME 95.6 fL (81-97); MEAN PLATELET VOLUME 8.8 fL (7.4-10.4); MONOCYTES # (AUTO) 0.72 x10^3/uL (0.2-0.8); MONOCYTES % (AUTO) 10 % (2-9); NEUTROPHILS # (AUTO) 4.44 x10^3/uL (1.8-6.8); NEUTROPHILS % (AUTO) 62 % (42-75); PLATELET COUNT 209 x10^3/uL (130-400); RED BLOOD COUNT 2.47 x10^6/uL (4.38-5.82); RED CELL DISTRIBUTION WIDTH 14.8 % (9.4-14.8)
[2018-03-14 06:16] LABS: ANION GAP 6 mmol/L (5-15); CHLORIDE 102 mmol/L (98-107)
[2018-03-14 06:59] VITALS: BP 128/76
[2018-03-14] MEDS: SEVELAMER CARBONATE 800MG TAB PO SCH ×3 (08:00→17:00)
[2018-03-14] MEDS: HEPARIN 5,000 UNITS/ML, 1ML SQ SCH ×2 (09:00→20:16)
[2018-03-14 12:42] VITALS: BP 110/69
[2018-03-14] MEDS ORDERED: PROPOFOL 50 ML ONE (13:20)
[2018-03-14] MEDS ORDERED: FENTANYL PF 100 MCG/2ML ONE ×2 (13:23→13:27)
[2018-03-14] MEDS ORDERED: OXYcodone 5 MG/5 ML ORAL.SOL UDC ONE (13:28)
[2018-03-14] MEDS ORDERED: MIDAZOLAM 1 MG/ML, 2ML ONE (13:30)
[2018-03-14] MEDS ORDERED: EPHEDRINE 50 MG/ML, 1ML IM PRN (14:00)
[2018-03-14] MEDS ORDERED: PROMETHAZINE 12.5 MG SUPP PR PRN (14:00)
[2018-03-14] MEDS ORDERED: FENTANYL PF 100 MCG/2ML IV PRN (14:00)
[2018-03-14] MEDS ORDERED: MORPHINE SULFATE 4 MG/ML, 1ML IVPush PRN (14:00)
[2018-03-14] MEDS ORDERED: OXYcodone 5 MG/5 ML ORAL.SOL UDC PO PRN (14:00)
[2018-03-14] MEDS ORDERED: PROMETHAZINE 25 MG SUPP PR PRN (14:00)
[2018-03-14] MEDS ORDERED: ONDANSETRON 2MG/ML, 2ML IV PRN (14:00)
[2018-03-14] MEDS ORDERED: ONDANSETRON ODT 8 MG PO PRN (14:00)
[2018-03-14] MEDS ORDERED: MIDAZOLAM 1 MG/ML, 2ML IV PRN (14:00)
[2018-03-14] MEDS ORDERED: PROMETHAZINE 25 MG/ML, 1ML IV PRN (14:00)
[2018-03-14] MEDS: CARVEDILOL 6.25 MG TABLET PO SCH (18:30)
[2018-03-14 20:18] VITALS: BP 117/66
[2018-03-14] MEDS: DIPHENHYDRAMINE 50 MG CAPSULE PO PRN (23:09)
[2018-03-15] VITALS (12 sets, daily range): BP systolic 91–127; BP diastolic 53–75
[2018-03-15] MEDS: NICOTINE 21 MG/24 HR PATCH.TD24 TD SCH (00:48)
[2018-03-15] MEDS: CARVEDILOL 6.25 MG TABLET PO SCH (04:49)
[2018-03-15] MEDS: VANCOMYCIN 50 MG/ML ORAL SUSP PO SCH ×4 (04:49→22:50)
[2018-03-15 05:15] LABS: MEAN CORPUSCULAR HEMOGLOBIN 33.2 pg (27.5-34.5); MEAN CORPUSCULAR HGB CONC 34.4 g/dL (33.2-36.2); MEAN CORPUSCULAR VOLUME 96.5 fL (81-97); MEAN PLATELET VOLUME 9.1 fL (7.4-10.4); PLATELET COUNT 185 x10^3/uL (130-400); RED CELL DISTRIBUTION WIDTH 14.9 % (9.4-14.8)
[2018-03-15 05:22] LABS: ALBUMIN 1.8 g/dL (3.4-5.0); ANION GAP 5 mmol/L (5-15); CALCIUM 8.2 mg/dL (8.5-10.1); CHLORIDE 103 mmol/L (98-107)
[2018-03-15 05:58] LABS: BASOPHILS # (AUTO) 0.08 x10^3/uL (0-0.1); BASOPHILS % (AUTO) 1 % (0-1); EOSINOPHILS % (AUTO) 2 % (1-7); LYMPHOCYTES # (AUTO) 2.07 x10^3/uL (1-3.4); LYMPHOCYTES % (AUTO) 33 % (22-44); MONOCYTES # (AUTO) 0.59 x10^3/uL (0.2-0.8); MONOCYTES % (AUTO) 9 % (2-9); NEUTROPHILS # (AUTO) 3.44 x10^3/uL (1.8-6.8); NEUTROPHILS % (AUTO) 55 % (42-75)
[2018-03-15 06:00] LABS: MD SCAN
[2018-03-15] MEDS: SEVELAMER CARBONATE 800MG TAB PO SCH ×2 (08:00→17:13)
[2018-03-15] MEDS: HEPARIN 5,000 UNITS/ML, 1ML SQ SCH ×2 (09:00→21:00)
[2018-03-15] MEDS: AMPICILLIN/SULBACTAM 3 GM in SODIUM CHLORIDE 0.9% 100 ML IV SCH (15:30)
[2018-03-15] MEDS: CARVEDILOL 3.125 MG TABLET PO SCH (17:13)
[2018-03-15] MEDS: LOSARTAN 25MG TABLET PO SCH (21:00)
[2018-03-15] MEDS: ACETAMINOPHEN 325 MG TABLET PO PRN (22:50)
[2018-03-16] MEDS: NICOTINE 21 MG/24 HR PATCH.TD24 TD SCH (00:55)
[2018-03-16] MEDS: DIPHENHYDRAMINE 50 MG CAPSULE PO PRN ×2 (00:55→18:06)
[2018-03-16 01:48] VITALS: BP 114/69
[2018-03-16 05:09] VITALS: BP 120/70
[2018-03-16] MEDS: VANCOMYCIN 50 MG/ML ORAL SUSP PO SCH ×4 (05:10→22:18)
[2018-03-16] MEDS: CARVEDILOL 3.125 MG TABLET PO SCH ×2 (05:10→17:05)
[2018-03-16 05:39] LABS: BASOPHILS # (AUTO) 0.08 x10^3/uL (0-0.1); BASOPHILS % (AUTO) 1 % (0-1); EOSINOPHILS # (AUTO) 0.07 x10^3/uL (0-0.4); EOSINOPHILS % (AUTO) 1 % (1-7); LYMPHOCYTES # (AUTO) 1.55 x10^3/uL (1-3.4); LYMPHOCYTES % (AUTO) 22 % (22-44); MD NO; MEAN CORPUSCULAR HEMOGLOBIN 31.6 pg (27.5-34.5); MEAN CORPUSCULAR HGB CONC 33.6 g/dL (33.2-36.2); MEAN CORPUSCULAR VOLUME 93.9 fL (81-97); MEAN PLATELET VOLUME 9.1 fL (7.4-10.4); MONOCYTES # (AUTO) 0.74 x10^3/uL (0.2-0.8); MONOCYTES % (AUTO) 11 % (2-9); NEUTROPHILS # (AUTO) 4.49 x10^3/uL (1.8-6.8); NEUTROPHILS % (AUTO) 65 % (42-75); PLATELET COUNT 175 x10^3/uL (130-400); RED BLOOD COUNT 2.76 x10^6/uL (4.38-5.82); RED CELL DISTRIBUTION WIDTH 17.2 % (9.4-14.8)
[2018-03-16 05:46] LABS: ANION GAP 5 mmol/L (5-15); CALCIUM 7.6 mg/dL (8.5-10.1); CHLORIDE 103 mmol/L (98-107)
[2018-03-16 06:45] VITALS: BP 116/64
[2018-03-16] MEDS: SEVELAMER CARBONATE 800MG TAB PO SCH ×3 (08:00→17:00)
[2018-03-16] MEDS: HEPARIN 5,000 UNITS/ML, 1ML SQ SCH ×2 (08:07→21:00)
[2018-03-16] MEDS: ACETAMINOPHEN 325 MG TABLET PO PRN ×2 (08:07→18:06)
[2018-03-16] MEDS: AMPICILLIN/SULBACTAM 3 GM in SODIUM CHLORIDE 0.9% 100 ML IV SCH (11:00)
[2018-03-16 12:06] VITALS: BP 119/68
[2018-03-16 18:54] VITALS: BP 130/71
[2018-03-16] MEDS: LOSARTAN 25MG TABLET PO SCH (22:19)
[2018-03-17] MEDS: NICOTINE 21 MG/24 HR PATCH.TD24 TD SCH (00:36)
[2018-03-17] MEDS: ACETAMINOPHEN 325 MG TABLET PO PRN ×3 (00:36→13:30)
[2018-03-17 00:52] VITALS: BP 129/80
[2018-03-17] MEDS: VANCOMYCIN 50 MG/ML ORAL SUSP PO SCH ×2 (05:01→13:23)
[2018-03-17] MEDS: CARVEDILOL 3.125 MG TABLET PO SCH (05:01)
[2018-03-17 05:45] LABS: ANION GAP 6 mmol/L (5-15); CALCIUM 8.2 mg/dL (8.5-10.1); CHLORIDE 103 mmol/L (98-107); CREATININE 3.98 mg/dL (0.7-1.3)
[2018-03-17 06:13] LABS: BASOPHILS # (AUTO) 0.07 x10^3/uL (0-0.1); BASOPHILS % (AUTO) 1 % (0-1); EOSINOPHILS # (AUTO) 0.07 x10^3/uL (0-0.4); EOSINOPHILS % (AUTO) 1 % (1-7); LYMPHOCYTES # (AUTO) 1.59 x10^3/uL (1-3.4); LYMPHOCYTES % (AUTO) 26 % (22-44); MD NO; MEAN CORPUSCULAR HEMOGLOBIN 32.2 pg (27.5-34.5); MEAN CORPUSCULAR HGB CONC 34.2 g/dL (33.2-36.2); MEAN CORPUSCULAR VOLUME 94.1 fL (81-97); MEAN PLATELET VOLUME 9.1 fL (7.4-10.4); MONOCYTES # (AUTO) 0.58 x10^3/uL (0.2-0.8); MONOCYTES % (AUTO) 10 % (2-9); NEUTROPHILS # (AUTO) 3.76 x10^3/uL (1.8-6.8); NEUTROPHILS % (AUTO) 62 % (42-75); PLATELET COUNT 175 x10^3/uL (130-400); RED BLOOD COUNT 2.74 x10^6/uL (4.38-5.82); RED CELL DISTRIBUTION WIDTH 16.8 % (9.4-14.8)
[2018-03-17 06:57] VITALS: BP 132/75
[2018-03-17] MEDS: SEVELAMER CARBONATE 800MG TAB PO SCH ×2 (08:00→12:00)
[2018-03-17] MEDS: HEPARIN 5,000 UNITS/ML, 1ML SQ SCH (09:00)
[2018-03-17] MEDS ORDERED: SEVE800T8 PO (10:52)
[2018-03-17] MEDS ORDERED: ONDA8TAB16 PO (10:52)
[2018-03-17] MEDS ORDERED: CARV3.1212 PO (10:52)
[2018-03-17] MEDS ORDERED: OXYC5SOL8 PO (10:52)
[2018-03-17] MEDS ORDERED: LIDO700A20 TD (10:52)
[2018-03-17] MEDS ORDERED: AMPI3VIA IV (10:52)
[2018-03-17] MEDS ORDERED: DARB60VI SQ (10:52)
[2018-03-17] MEDS ORDERED: DIPH50CA PO (10:52)
[2018-03-17] MEDS ORDERED: NICO-487 TD (10:52)
[2018-03-17] MEDS ORDERED: HEPA50002 SQ (10:52)
[2018-03-17] MEDS ORDERED: VANC125C2 PO (10:52)
[2018-03-17] MEDS ORDERED: TRAM50TA2 PO (10:52)
[2018-03-17] MEDS ORDERED: LOSA25TA25 PO (10:52)
[2018-03-17] MEDS ORDERED: ACET325T14 PO (10:52)
[2018-03-17 13:19] VITALS: BP 127/71
[2018-03-17] MEDS: AMPICILLIN/SULBACTAM 3 GM in SODIUM CHLORIDE 0.9% 100 ML IV SCH (13:23)
== END 2018-03-17 16:34 | DRG 853 ==
LOC: ED 21:06 → SUATTDRO 23:27 → EDIP 23:28 → 5SO 03-06 01:29 → 4EST 03-07 22:32
PROVIDERS: ADMIT Hospitalist; ATTEND Hospitalist
PROC: 5A1D70Z Performance of Urinary Filtration, Intermittent, Less than 6 Hours Per Day (ICD-10-PCS; 2018-03-08)
PROC: 0Y6P0Z0 Detachment at Right 1st Toe, Complete, Open Approach (ICD-10-PCS; principal; 2018-03-09 21:00)
PROC: 5A1D70Z Performance of Urinary Filtration, Intermittent, Less than 6 Hours Per Day (ICD-10-PCS; 2018-03-10)
PROC: 5A1D70Z Performance of Urinary Filtration, Intermittent, Less than 6 Hours Per Day (ICD-10-PCS; 2018-03-12)
PROC: 0Y6S0Z0 Detachment at Left 2nd Toe, Complete, Open Approach (ICD-10-PCS; 2018-03-14)
PROC: 30233N1 Transfusion of Nonautologous Red Blood Cells into Peripheral Vein, Percutaneous Approach (ICD-10-PCS; 2018-03-15)
PROC: 5A1D70Z Performance of Urinary Filtration, Intermittent, Less than 6 Hours Per Day (ICD-10-PCS; 2018-03-15)
PROC: 02HV33Z Insertion of Infusion Device into Superior Vena Cava, Percutaneous Approach (ICD-10-PCS; 2018-03-17)
PROC: B5181ZA Fluoroscopy of Superior Vena Cava using Low Osmolar Contrast, Guidance (ICD-10-PCS; 2018-03-17)
PROC: B548ZZA Ultrasonography of Superior Vena Cava, Guidance (ICD-10-PCS; 2018-03-17)
PROC: 5A1D70Z Performance of Urinary Filtration, Intermittent, Less than 6 Hours Per Day (ICD-10-PCS; 2018-03-17)
DX: A41.9 Sepsis, unspecified organism (principal); E43 Unspecified severe protein-calorie malnutrition; N18.6 End stage renal disease; A04.72 Enterocolitis due to Clostridium difficile, not specified as recurrent; E11.52 Type 2 diabetes mellitus with diabetic peripheral angiopathy with gangrene; E87.1 Hypo-osmolality and hyponatremia; I13.2 Hypertensive heart and chronic kidney disease with heart failure and with stage 5 chronic kidney disease, or end stage renal disease; I50.42 Chronic combined systolic (congestive) and diastolic (congestive) heart failure; K76.6 Portal hypertension; L03.115 Cellulitis of right lower limb; M86.172 Other acute osteomyelitis, left ankle and foot; M86.171 Other acute osteomyelitis, right ankle and foot; Z68.1 Body mass index [BMI] 19.9 or less, adult; B95.4 Other streptococcus as the cause of diseases classified elsewhere; D63.1 Anemia in chronic kidney disease; E11.21 Type 2 diabetes mellitus with diabetic nephropathy; E11.22 Type 2 diabetes mellitus with diabetic chronic kidney disease; E11.40 Type 2 diabetes mellitus with diabetic neuropathy, unspecified; E11.65 Type 2 diabetes mellitus with hyperglycemia; E87.5 Hyperkalemia; E87.6 Hypokalemia; F17.210 Nicotine dependence, cigarettes, uncomplicated; I25.2 Old myocardial infarction; I48.91 Unspecified atrial fibrillation; L89.159 Pressure ulcer of sacral region, unspecified stage; E11.69 Type 2 diabetes mellitus with other specified complication; Z59.0 Homelessness; Z79.4 Long term (current) use of insulin; Z83.3 Family history of diabetes mellitus; Z86.14 Personal history of Methicillin resistant Staphylococcus aureus infection; Z91.14 Patient's other noncompliance with medication regimen; Z91.15 Patient's noncompliance with renal dialysis; Z91.19 Patient's noncompliance with other medical treatment and regimen; Z99.2 Dependence on renal dialysis
CPT/HCPCS: 36415; 73630; 84145; 99285; J3370; 36573; 71045; 78315; 80048; 80053; 80069; 80202; 82962; 83036; 83605; 83735; 83880; 84484; 85025; 85651; 86140; 86704; 86706; 86850; 86900; 86923; 87040; 87070; 87075; 87077; 87147; 87181; 87186; 87205; 87324; 87340; 88305; 88311; 90715; 96374; G0378; J0295; J0878; J0882; J2185; J2250; J2704; J3010; A9503; A9572; C1751; P9016

== ENCOUNTER 2018-05-27 09:40 | Emergency (ER) | payer MEDICAID ==
[~2018-05-27] VITALS: Ht 188 cm; Wt 61.5 kg
[~2018-05-27 09:40] MED LIST changes: +ACET325T14 PO; +AMPI3VIA IV; +CARV3.1212 PO; +DARB60VI SQ; +DIPH50CA PO; +HEPA50002 SQ; +LIDO700A20 TD; +LOSA25TA25 PO; +NICO-487 TD; +ONDA8TAB16 PO; +OXYC5SOL8 PO; +SEVE800T8 PO; +TRAM50TA2 PO; +VANC125C3 PO
--- NOTE | 2018-05-27 10:06 | NUR ---
PT. WAS SENT FROM HIS [facility]ALTH RN FOR EVALUATION OF LEFT FOOT WOUNDS THAT ARE DRAINING PURULENT DRAINAGE. PT. IS MISSING HIS RIGHT GREAT AND RIGHT MIDDLE TOES. PT. IS ALSO MISSING HIS LEFT SECOND TOE. PT. HAS DRAINAGE PRESENT DRAINAGE ON THE WOUND NEXT TO HIS FOURTH TOE. PT. IS RESTING WITH THE HOB ELEVATED GREATER THAN 30 DEGREES AND THE SIDERAILS ARE UP X 2. CALL LIGHT IN PLACE.
--- NOTE | 2018-05-27 11:15 | NUR ---
NO CHANGES AT THIS TIME.
[2018-05-27 11:34] LABS: HCT (SEDRATE) 30.9 % (39.2-51.8)
[2018-05-27 11:35] LABS: BASOPHILS # (AUTO) 0.03 x10^3/uL (0-0.1); BASOPHILS % (AUTO) 0 % (0-1); EOSINOPHILS # (AUTO) 0.19 x10^3/uL (0-0.4); EOSINOPHILS % (AUTO) 2 % (1-7); LYMPHOCYTES # (AUTO) 1.59 x10^3/uL (1-3.4); LYMPHOCYTES % (AUTO) 20 % (22-44); MD NO; MEAN CORPUSCULAR HEMOGLOBIN 33.8 pg (27.5-34.5); MEAN CORPUSCULAR HGB CONC 33.9 g/dL (33.2-36.2); MEAN CORPUSCULAR VOLUME 99.7 fL (81-97); MEAN PLATELET VOLUME 8.5 fL (7.4-10.4); MONOCYTES # (AUTO) 1.19 x10^3/uL (0.2-0.8); MONOCYTES % (AUTO) 15 % (2-9); NEUTROPHILS # (AUTO) 4.91 x10^3/uL (1.8-6.8); NEUTROPHILS % (AUTO) 62 % (42-75); PLATELET COUNT 176 x10^3/uL (130-400); RED BLOOD COUNT 3.12 x10^6/uL (4.38-5.82); RED CELL DISTRIBUTION WIDTH 14.9 % (9.4-14.8)
[2018-05-27 11:46] LABS: ALBUMIN 2.7 g/dL (3.4-5.0); ANION GAP 6 mmol/L (5-15); CALCIUM 12.1 mg/dL (8.5-10.1); CHLORIDE 101 mmol/L (98-107)
[2018-05-27 11:51] LABS: ALANINE AMINOTRANSFERASE 20 U/L (12-78); ALKALINE PHOSPHATASE 77 U/L (45-117); BILIRUBIN,TOTAL 0.5 mg/dL (0.2-1.0); CREATININE 2.98 mg/dL (0.7-1.3); TOTAL PROTEIN 8.6 g/dL (6.4-8.2)
[2018-05-27 13:03] VITALS: BP 162/90
--- NOTE | 2018-05-27 13:03 | NUR ---
PT. REPORT WAS GIVEN TO ROBEL BURK.
== END 2018-05-27 14:58 | disposition home or self-care (01) ==
LOC: ED 13:23
DX: I83.218 Varicose veins of right lower extremity with both ulcer of other part of lower extremity and inflammation (principal); E11.621 Type 2 diabetes mellitus with foot ulcer; E11.40 Type 2 diabetes mellitus with diabetic neuropathy, unspecified; E11.21 Type 2 diabetes mellitus with diabetic nephropathy; F17.210 Nicotine dependence, cigarettes, uncomplicated; E11.22 Type 2 diabetes mellitus with diabetic chronic kidney disease; I12.0 Hypertensive chronic kidney disease with stage 5 chronic kidney disease or end stage renal disease; N18.6 End stage renal disease; Z99.2 Dependence on renal dialysis
CPT/HCPCS: 36415; 80053; 85025; 85651; 99284

== ENCOUNTER → 2018-06-13 | Outpatient (CLI) | payer MEDICAID | END | disposition home or self-care (01) | LOC: WOUND 10:03 | PROVIDERS: ATTEND Internal Medicine | DX: E11.621 Type 2 diabetes mellitus with foot ulcer (principal); L97.522 Non-pressure chronic ulcer of other part of left foot with fat layer exposed; L97.512 Non-pressure chronic ulcer of other part of right foot with fat layer exposed; E11.52 Type 2 diabetes mellitus with diabetic peripheral angiopathy with gangrene; I96 Gangrene, not elsewhere classified; E43 Unspecified severe protein-calorie malnutrition; F17.210 Nicotine dependence, cigarettes, uncomplicated; G89.29 Other chronic pain; E11.22 Type 2 diabetes mellitus with diabetic chronic kidney disease; I13.2 Hypertensive heart and chronic kidney disease with heart failure and with stage 5 chronic kidney disease, or end stage renal disease; I50.30 Unspecified diastolic (congestive) heart failure; N18.6 End stage renal disease; E11.69 Type 2 diabetes mellitus with other specified complication; M86.171 Other acute osteomyelitis, right ankle and foot; M86.172 Other acute osteomyelitis, left ankle and foot; E11.40 Type 2 diabetes mellitus with diabetic neuropathy, unspecified; I48.91 Unspecified atrial fibrillation; Z89.411 Acquired absence of right great toe; Z89.422 Acquired absence of other left toe(s) | CPT/HCPCS: 97597; 97598; 99215 ==

== ENCOUNTER 2018-06-20 10:16 | Outpatient (CLI) | payer MEDICAID | END 2018-06-20 23:59 | disposition home or self-care (01) | LOC: WOUND 10:16 | PROVIDERS: ATTEND Internal Medicine | DX: E11.621 Type 2 diabetes mellitus with foot ulcer (principal); L97.522 Non-pressure chronic ulcer of other part of left foot with fat layer exposed; L97.512 Non-pressure chronic ulcer of other part of right foot with fat layer exposed; E11.21 Type 2 diabetes mellitus with diabetic nephropathy; E11.69 Type 2 diabetes mellitus with other specified complication; M86.171 Other acute osteomyelitis, right ankle and foot; M86.172 Other acute osteomyelitis, left ankle and foot; E11.40 Type 2 diabetes mellitus with diabetic neuropathy, unspecified; E11.52 Type 2 diabetes mellitus with diabetic peripheral angiopathy with gangrene; I96 Gangrene, not elsewhere classified; L84 Corns and callosities; I13.2 Hypertensive heart and chronic kidney disease with heart failure and with stage 5 chronic kidney disease, or end stage renal disease; E11.22 Type 2 diabetes mellitus with diabetic chronic kidney disease; N18.6 End stage renal disease; I50.30 Unspecified diastolic (congestive) heart failure; G89.29 Other chronic pain; I48.91 Unspecified atrial fibrillation; F17.210 Nicotine dependence, cigarettes, uncomplicated; Z99.2 Dependence on renal dialysis; Z89.411 Acquired absence of right great toe; Z89.422 Acquired absence of other left toe(s); Z86.73 Personal history of transient ischemic attack (TIA), and cerebral infarction without residual deficits | CPT/HCPCS: 11042; 11045 ==

== ENCOUNTER 2018-06-29 15:49 | Inpatient (IN) | payer MEDICAID ==
[~2018-06-29] VITALS: Ht 182.9 cm; Wt 66.0 kg
[~2018-06-29 15:49] MED LIST changes: -LOSA100T14 PO
[2018-06-29 16:27] LABS: BASOPHILS # (AUTO) 0.01 x10^3/uL (0-0.1); BASOPHILS % (AUTO) 0 % (0-1); EOSINOPHILS # (AUTO) 0.17 x10^3/uL (0-0.4); EOSINOPHILS % (AUTO) 4 % (1-7); HCT (SEDRATE) 27.2 % (39.2-51.8); LYMPHOCYTES # (AUTO) 1.12 x10^3/uL (1-3.4); LYMPHOCYTES % (AUTO) 24 % (22-44); MD NO; MEAN CORPUSCULAR HEMOGLOBIN 33.9 pg (27.5-34.5); MEAN CORPUSCULAR HGB CONC 34.6 g/dL (33.2-36.2); MEAN CORPUSCULAR VOLUME 98.2 fL (81-97); MEAN PLATELET VOLUME 7.9 fL (7.4-10.4); MONOCYTES # (AUTO) 0.64 x10^3/uL (0.2-0.8); MONOCYTES % (AUTO) 14 % (2-9); NEUTROPHILS % (AUTO) 58 % (42-75); PLATELET COUNT 221 x10^3/uL (130-400); RED BLOOD COUNT 2.78 x10^6/uL (4.38-5.82); RED CELL DISTRIBUTION WIDTH 14.8 % (9.4-14.8)
[2018-06-29 16:35] LABS: ANION GAP 7 mmol/L (5-15); CALCIUM 8.6 mg/dL (8.5-10.1); CHLORIDE 99 mmol/L (98-107); CREATININE 4.09 mg/dL (0.7-1.3)
--- NOTE | 2018-06-29 17:32 | NUR ---
RAD awaiting pt to room due to isolation precautions
--- NOTE | 2018-06-29 17:33 | NUR ---
TO ROOM FROM LOBBY. NAD.
--- NOTE | 2018-06-29 17:54 | NUR ---
pt presented to ed with bilateral wounds and sent from wound care for wound treatments. pt a&ox4. pt placed in room and placed on bp and cont. pulse oximeter. md at bedside. pt was seen in pit and orders received. assessment completed. call light in room.
[2018-06-29] MEDS ORDERED: LOSA100T14 PO (18:14)
--- NOTE | 2018-06-29 18:20 | NUR ---
report given to shahriar laughlin
[2018-06-29] MEDS ORDERED: VANCOMYCIN PER PHARMACY MC ONE (18:30)
[2018-06-29] MEDS ORDERED: VANCOMYCIN 1,300 MG in SODIUM CHLORIDE 0.9% 250 ML IV ONE (18:30)
[2018-06-29] MEDS ORDERED: PIPERACILLIN/TAZO/PMX 2.25GM 50 ML IV ONE (18:30)
--- NOTE | 2018-06-29 19:05 | NUR ---
ABX INITIATED. BC X2 DRAWN PRIOR TO ADMIN
--- NOTE | 2018-06-29 19:34 | NUR ---
HOSPITALIST AT BEDSIDE.
--- NOTE | 2018-06-29 19:49 | NUR ---
NO S/S OF ABX RXN NOTED. WOODROW AYALA PER ORDER. AWAITING ADMIT
[2018-06-29] MEDS ORDERED: SODIUM CHLORIDE FLUSH 10ML SYR IVF PRN (20:00)
[2018-06-29] MEDS ORDERED: ACETAMINOPHEN 325 MG TABLET PO PRN (20:00)
[2018-06-29] MEDS ORDERED: ZOSYN PER PHARMACY MC PRN (20:00)
[2018-06-29] MEDS ORDERED: DIPHENHYDRAMINE 50 MG CAPSULE PO PRN (20:00)
[2018-06-29] MEDS ORDERED: VANCOMYCIN PER PHARMACY MC PRN (20:00)
[2018-06-29] MEDS: HEPARIN 5,000 UNITS/ML, 1ML SQ SCH (20:00)
[2018-06-29] MEDS ORDERED: hydrALAzine 20 MG/ML, 1ML IVPush PRN (20:00)
[2018-06-29] MEDS ORDERED: NICOTINE 21 MG/24 HR PATCH.TD24 TD SCH (20:00)
--- NOTE | 2018-06-29 20:08 | NUR ---
REPORT TO BHARGAVI GOLDBERG
[2018-06-29 20:40] VITALS: BP 130/73
[2018-06-29] MEDS ORDERED: PHARMACOKINETIC MONITORING MC PRN (21:30)
[2018-06-29] MEDS ORDERED: PIPERACILLIN/TAZO 2.25 GM in NS 50 ML IV SCH (21:30)
[2018-06-30 02:32] VITALS: BP 125/74
[2018-06-30] MEDS: HEPARIN 5,000 UNITS/ML, 1ML SQ SCH ×2 (02:54→12:00)
[2018-06-30] MEDS ORDERED: PIPERACILLIN/TAZO/PMX 2.25GM 50 ML IVPB SCH (03:00)
[2018-06-30] MEDS: CARVEDILOL 3.125 MG TABLET PO SCH ×2 (05:17→17:38)
[2018-06-30 05:37] LABS: BASOPHILS # (AUTO) 0.01 x10^3/uL (0-0.1); BASOPHILS % (AUTO) 0 % (0-1); EOSINOPHILS # (AUTO) 0.19 x10^3/uL (0-0.4); EOSINOPHILS % (AUTO) 5 % (1-7); LYMPHOCYTES # (AUTO) 1.27 x10^3/uL (1-3.4); LYMPHOCYTES % (AUTO) 31 % (22-44); MD NO; MEAN CORPUSCULAR HEMOGLOBIN 33.6 pg (27.5-34.5); MEAN CORPUSCULAR HGB CONC 34.2 g/dL (33.2-36.2); MEAN CORPUSCULAR VOLUME 98.2 fL (81-97); MEAN PLATELET VOLUME 8.1 fL (7.4-10.4); MONOCYTES # (AUTO) 0.64 x10^3/uL (0.2-0.8); MONOCYTES % (AUTO) 16 % (2-9); NEUTROPHILS # (AUTO) 1.96 x10^3/uL (1.8-6.8); NEUTROPHILS % (AUTO) 48 % (42-75); PLATELET COUNT 176 x10^3/uL (130-400); RED BLOOD COUNT 2.53 x10^6/uL (4.38-5.82); RED CELL DISTRIBUTION WIDTH 14.2 % (9.4-14.8)
[2018-06-30 05:40] LABS: CHLORIDE 103 mmol/L (98-107)
[2018-06-30 06:21] LABS: ALANINE AMINOTRANSFERASE 13 U/L (12-78); ALBUMIN 2.3 g/dL (3.4-5.0); ALKALINE PHOSPHATASE 79 U/L (45-117); ANION GAP 7 mmol/L (5-15); BILIRUBIN,TOTAL 0.4 mg/dL (0.2-1.0); CALCIUM 8.7 mg/dL (8.5-10.1); CREATININE 4.74 mg/dL (0.7-1.3)
[2018-06-30 07:25] VITALS: BP 127/76
[2018-06-30] MEDS: SEVELAMER CARBONATE 800MG TAB PO SCH ×3 (08:22→16:41)
[2018-06-30] MEDS ORDERED: LOSARTAN 25MG TABLET PO SCH (09:00)
[2018-06-30 09:39] LABS: HCT (SEDRATE) 24.8 % (39.2-51.8)
[2018-06-30 13:23] VITALS: BP 124/78
== END 2018-06-30 19:10 | disposition left against medical advice (07) | DRG 638 ==
LOC: ED 19:47 → EDIP 19:51 → 4WST 20:51
PROVIDERS: ADMIT Family Medicine; ATTEND Family Medicine
PROC: 5A1D70Z Performance of Urinary Filtration, Intermittent, Less than 6 Hours Per Day (ICD-10-PCS; principal; 2018-06-30)
DX: E11.69 Type 2 diabetes mellitus with other specified complication (principal); M86.172 Other acute osteomyelitis, left ankle and foot; I13.2 Hypertensive heart and chronic kidney disease with heart failure and with stage 5 chronic kidney disease, or end stage renal disease; I50.22 Chronic systolic (congestive) heart failure; K76.6 Portal hypertension; N18.6 End stage renal disease; E11.22 Type 2 diabetes mellitus with diabetic chronic kidney disease; I87.2 Venous insufficiency (chronic) (peripheral); F17.200 Nicotine dependence, unspecified, uncomplicated; D63.1 Anemia in chronic kidney disease; I48.91 Unspecified atrial fibrillation; E11.42 Type 2 diabetes mellitus with diabetic polyneuropathy; E11.51 Type 2 diabetes mellitus with diabetic peripheral angiopathy without gangrene; Z53.21 Procedure and treatment not carried out due to patient leaving prior to being seen by health care provider; Z72.89 Other problems related to lifestyle; Z89.412 Acquired absence of left great toe; Z99.2 Dependence on renal dialysis; Z89.422 Acquired absence of other left toe(s); Z71.6 Tobacco abuse counseling; Z83.3 Family history of diabetes mellitus; Z86.19 Personal history of other infectious and parasitic diseases; Z86.74 Personal history of sudden cardiac arrest; Z79.899 Other long term (current) drug therapy
CPT/HCPCS: 36415; 80048; 80053; 82962; 83605; 84145; 85025; 85651; 86140; 86705; 86706; 87040; 87070; 87205; 87340; 93005; 96365; 96367; G0378; J2543; J3370; J7050

== ENCOUNTER → 2018-06-29 | Outpatient (CLI) | payer MEDICAID ==
[~2018-06-29] MED LIST changes: +LOSA100T14 PO
== END | disposition home or self-care (01) ==
LOC: WOUND 14:47
PROVIDERS: ATTEND Internal Medicine
DX: E11.621 Type 2 diabetes mellitus with foot ulcer (principal); L97.526 Non-pressure chronic ulcer of other part of left foot with bone involvement without evidence of necrosis; L97.512 Non-pressure chronic ulcer of other part of right foot with fat layer exposed; I87.2 Venous insufficiency (chronic) (peripheral); E11.42 Type 2 diabetes mellitus with diabetic polyneuropathy; E11.52 Type 2 diabetes mellitus with diabetic peripheral angiopathy with gangrene; I96 Gangrene, not elsewhere classified; E11.21 Type 2 diabetes mellitus with diabetic nephropathy; E11.69 Type 2 diabetes mellitus with other specified complication; M86.171 Other acute osteomyelitis, right ankle and foot; M86.172 Other acute osteomyelitis, left ankle and foot; I13.2 Hypertensive heart and chronic kidney disease with heart failure and with stage 5 chronic kidney disease, or end stage renal disease; I50.42 Chronic combined systolic (congestive) and diastolic (congestive) heart failure; E11.22 Type 2 diabetes mellitus with diabetic chronic kidney disease; I50.9 Heart failure, unspecified; N18.6 End stage renal disease; L84 Corns and callosities; G89.29 Other chronic pain; I48.91 Unspecified atrial fibrillation; E43 Unspecified severe protein-calorie malnutrition; F17.200 Nicotine dependence, unspecified, uncomplicated; Z99.2 Dependence on renal dialysis; Z79.4 Long term (current) use of insulin; Z89.411 Acquired absence of right great toe; Z89.412 Acquired absence of left great toe; Z89.422 Acquired absence of other left toe(s); Z79.899 Other long term (current) drug therapy; Z91.14 Patient's other noncompliance with medication regimen; Z86.73 Personal history of transient ischemic attack (TIA), and cerebral infarction without residual deficits
CPT/HCPCS: 11044; 99215

== ENCOUNTER 2018-07-15 15:58 | Inpatient (IN) | payer MEDICAID ==
[2018-07-15] VITALS (7 sets, daily range): BP systolic 66–100; BP diastolic 31–56
[~2018-07-15] VITALS: Ht 182.9 cm; Wt 68.5 kg
[~2018-07-15 15:58] MED LIST changes: +LOSA100T14 PO
--- NOTE | 2018-07-15 16:10 | NUR ---
PATIENT BIB [facility] FOR SOB/DIZZINESS STARTING YESTERDAY. PATIENT DOES DIALYSIS . HR 145, BP 90/50 UPON ARRIVAL, BS 92 PER EMS. 400ML IVF GIVEN EN ROUTE, NOW HR 126 AND BP 102/54 UPON ARRIVAL AT [facility]. TEMP 103.1. SKIN JAUNDICE, WARM, DRY. SECURITY SALES CONSULTANT ON PATIENT, EKG COMPLETED. AWAITING MD ORDERS, CALL LIGHT WITHIN REACH.
[2018-07-15] MEDS ORDERED: PHARMACOKINETIC CONSULTATION MC ONE ×2 (16:30→20:30)
[2018-07-15] MEDS ORDERED: VANCOMYCIN PER PHARMACY IV ONE (16:30)
[2018-07-15] MEDS ORDERED: PIPERACILLIN/TAZO/PMX 3.375GM 50 ML IVPB ONE (16:30)
[2018-07-15 16:50] LABS: MEAN CORPUSCULAR HEMOGLOBIN 31.9 pg (27.5-34.5); MEAN CORPUSCULAR HGB CONC 32.2 g/dL (33.2-36.2); MEAN CORPUSCULAR VOLUME 99.2 fL (81-97); MEAN PLATELET VOLUME 8.6 fL (7.4-10.4); PLATELET COUNT 172 x10^3/uL (130-400); RED BLOOD COUNT 2.71 x10^6/uL (4.38-5.82); RED CELL DISTRIBUTION WIDTH 14.9 % (9.4-14.8)
[2018-07-15] MEDS ORDERED: PIPERACILLIN/TAZO/PMX 3.375GM 50 ML ONE (16:55)
[2018-07-15] MEDS ORDERED: TRAM50TA2 PO (16:56)
[2018-07-15] MEDS ORDERED: ASPI-650 PO (16:57)
[2018-07-15 17:00] LABS: ALANINE AMINOTRANSFERASE 13 U/L (12-78); ALBUMIN 2.8 g/dL (3.4-5.0); ANION GAP 11 mmol/L (5-15); CALCIUM 8.7 mg/dL (8.5-10.1); CHLORIDE 97 mmol/L (98-107); CREATININE 3.78 mg/dL (0.7-1.3)
[2018-07-15] MEDS ORDERED: SODIUM CHLORIDE 0.9% IV ONE (17:00)
[2018-07-15] MEDS ORDERED: VANCOMYCIN IV ONE (17:00)
[2018-07-15 17:01] LABS: INTERNATIONAL NORMALIZED RATIO 1.23 (0.93-1.1); PROTHROMBIN TIME 12.8 Seconds (9.6-11.5)
[2018-07-15 17:03] LABS: ALKALINE PHOSPHATASE 85 U/L (45-117); BILIRUBIN,TOTAL 0.6 mg/dL (0.2-1.0); TOTAL PROTEIN 8.9 g/dL (6.4-8.2)
--- NOTE | 2018-07-15 17:08 | NUR ---
FSBS-64, BP 99/41. SPOKE TO , IVF ORDERED AND ADMINISTERED PER ORDER. BLOOD CULTURES DRAWN X 2, ABX ADMINISTERED PER ORDER. CULTURES DRAWN PRIOR TO ABX ADMINISTRATION. VS UPDATED IN CHART. PATIENT SITTING IN [facility]. NAD NOTED.
[2018-07-15] MEDS ORDERED: ACETAMINOPHEN 500 MG TABLET ONE (17:19)
--- NOTE | 2018-07-15 17:28 | NUR ---
REPORT TO OR.
[2018-07-15 17:31] LABS: MD YES
[2018-07-15 17:33] LABS: BAND#(MANUAL) 0.98 x10^3/uL; BANDS%(MANUAL) 8 % (0-7); SEG#(MANUAL) 11.32 x10^3/uL (1.8-6.8); SEGS% (MANUAL) 92 % (42-75)
[2018-07-15 17:34] LABS: ANISOCYTOSIS 1+
[2018-07-15 17:35] LABS: <PLT MORPHOLOGY> NORMAL PLT MORPH; POLYCHROMASIA 1+
[2018-07-15 17:36] LABS: <PLATELET ESTIMATE> ADEQUATE
[2018-07-15] MEDS ORDERED: morphine SULFATE 10 MG/ML, 1ML IVPush PRN (18:00)
[2018-07-15] MEDS ORDERED: ACETAMINOPHEN 325 MG TABLET PO PRN (18:00)
[2018-07-15] MEDS ORDERED: VANCOMYCIN PER PHARMACY MC PRN (18:00)
[2018-07-15] MEDS ORDERED: ONDANSETRON 2MG/ML, 2ML IVPush PRN (18:00)
[2018-07-15] MEDS ORDERED: ACETAMINOPHEN 500 MG TABLET PO ONE (18:00)
[2018-07-15] MEDS ORDERED: SODIUM CHLORIDE 0.9% 1,000ML IVBOLUS ONE ×3 (18:00→23:30)
[2018-07-15] MEDS ORDERED: BISACODYL 10 MG SUPP PR PRN (18:00)
--- NOTE | 2018-07-15 18:06 | NUR ---
PATIENT REFUSING WINTERS. OR HERE TO TRANSPORT PATIENT UPSTAIRS. PATIENT REQUESTING TO SPEAK WITH DR PRIOR TO SURGERY, PATIENT AWARE MD WILL TALK TO HIM PRIOR TO SURGERY UPSTAIRS. PATIENT BEING TRANSFERRED AT THIS TIME.
[2018-07-15 18:28] LABS: HCT (SEDRATE) 26.5 % (39.2-51.8)
[2018-07-15 19:15] LABS: SEDIMENTATION RATE > 120 mm/hr (0-10)
[2018-07-15] MEDS ORDERED: PHARMACOKINETIC MONITORING MC PRN (20:30)
[2018-07-15] MEDS: PIPERACILLIN/TAZO/PMX 3.375GM 50 ML IV SCH (21:48)
[2018-07-15] MEDS: NICOTINE 21 MG/24 HR PATCH.TD24 TD SCH (21:48)
[2018-07-15] MEDS: CARVEDILOL 3.125 MG TABLET PO SCH (21:49)
[2018-07-16] VITALS (8 sets, daily range): BP systolic 93–108; BP diastolic 50–63
[2018-07-16 01:59] LABS: MICROSCOPIC AUTO
[2018-07-16 02:00] LABS: CULTURE INDICATED? YES
[2018-07-16] MEDS: PIPERACILLIN/TAZO/PMX 3.375GM 50 ML IV SCH ×2 (03:22→11:06)
[2018-07-16 05:34] LABS: ALBUMIN 2.5 g/dL (3.4-5.0); ANION GAP 9 mmol/L (5-15); CALCIUM 8.2 mg/dL (8.5-10.1); CHLORIDE 102 mmol/L (98-107)
[2018-07-16 05:39] LABS: ALANINE AMINOTRANSFERASE 12 U/L (12-78); ALKALINE PHOSPHATASE 75 U/L (45-117); BILIRUBIN,TOTAL 0.8 mg/dL (0.2-1.0); CREATININE 3.91 mg/dL (0.7-1.3); TOTAL PROTEIN 7.9 g/dL (6.4-8.2)
[2018-07-16 05:42] LABS: MEAN CORPUSCULAR HEMOGLOBIN 33.2 pg (27.5-34.5); MEAN CORPUSCULAR HGB CONC 33.3 g/dL (33.2-36.2); MEAN CORPUSCULAR VOLUME 99.6 fL (81-97); RED BLOOD COUNT 2.57 x10^6/uL (4.38-5.82); RED CELL DISTRIBUTION WIDTH 15.2 % (9.4-14.8)
[2018-07-16 06:06] LABS: MD YES
[2018-07-16 06:08] LABS: BANDS%(MANUAL) 18 % (0-7); LYMPH#(MANUAL) 0.67 x10^3/uL (1-3.4); LYMPHS% (MANUAL) 6 % (22-44); MEAN PLATELET VOLUME 8.9 fL (7.4-10.4); MONOS#(MANUAL) 0.22 x10^3/uL (0.3-2.7); MONOS% (MANUAL) 2 % (2-9); PLATELET COUNT 112 x10^3/uL (130-400); SEG#(MANUAL) 8.21 x10^3/uL (1.8-6.8); SEGS% (MANUAL) 74 % (42-75)
[2018-07-16 06:10] LABS: ANISOCYTOSIS 1+
[2018-07-16 06:11] LABS: <PLATELET ESTIMATE> DECREASED; <PLT MORPHOLOGY> NORMAL PLT MORPH; POLYCHROMASIA 1+
[2018-07-16] MEDS: CARVEDILOL 3.125 MG TABLET PO SCH (06:17)
[2018-07-16] MEDS ORDERED: VANCOMYCIN 50 MG/ML ORAL SUSP PO SCH (09:00)
[2018-07-16] MEDS ORDERED: LOSARTAN 25MG TABLET PO SCH (09:00)
[2018-07-16] MEDS: SODIUM CHLORIDE 0.9% 1,000 ML IV SCH ×2 (11:05→21:11)
[2018-07-16] MEDS: SEVELAMER CARBONATE 800MG TAB PO SCH ×4 (11:05→18:42)
[2018-07-16] MEDS: HEPARIN 5,000 UNITS/ML, 1ML SQ SCH ×2 (11:07→21:00)
[2018-07-16 12:44] LABS: CLOSTRIDIUM DIFFICILE ANTIGEN POSITIVE; CLOSTRIDIUM DIFFICILE TOXIN NEGATIVE (Negative)
[2018-07-16] MEDS: DAPTOMYCIN 425 MG in SODIUM CHLORIDE 0.9% 100 ML IVPB SCH (13:40)
[2018-07-16] MEDS: VANCOMYCIN 50 MG/ML ORAL SUSP PO SCH (18:41)
[2018-07-16] MEDS: NICOTINE 21 MG/24 HR PATCH.TD24 TD SCH (21:11)
[2018-07-17] VITALS (7 sets, daily range): BP systolic 95–146; BP diastolic 55–80
[2018-07-17] MEDS: VANCOMYCIN 50 MG/ML ORAL SUSP PO SCH ×4 (01:16→20:06)
[2018-07-17] MEDS: SODIUM CHLORIDE 0.9% 1,000 ML IV SCH ×2 (02:59→16:42)
[2018-07-17] MEDS: PIPERACILLIN/TAZO/PMX 3.375GM 50 ML IV SCH (02:59)
[2018-07-17] MEDS ORDERED: VANCOMYCIN 1,300 MG in SODIUM CHLORIDE 0.9% 250 ML IV SCH (05:00)
[2018-07-17 05:31] LABS: ALBUMIN 2.3 g/dL (3.4-5.0); ANION GAP 9 mmol/L (5-15); CALCIUM 8.2 mg/dL (8.5-10.1); CHLORIDE 107 mmol/L (98-107)
[2018-07-17 05:36] LABS: % IRON SATURATION 17 % (20-55); ALANINE AMINOTRANSFERASE 13 U/L (12-78); ALKALINE PHOSPHATASE 60 U/L (45-117); BILIRUBIN,TOTAL 0.5 mg/dL (0.2-1.0); CREATININE 3.35 mg/dL (0.7-1.3); IRON LEVEL 27 mcg/dL (65-175); TOTAL IRON BINDING CAPACITY 155 mcg/dL (250-450); TOTAL PROTEIN 7.6 g/dL (6.4-8.2)
[2018-07-17 05:56] LABS: MEAN CORPUSCULAR HEMOGLOBIN 33.4 pg (27.5-34.5); MEAN CORPUSCULAR HGB CONC 33.3 g/dL (33.2-36.2); MEAN CORPUSCULAR VOLUME 100.1 fL (81-97); MEAN PLATELET VOLUME 9.9 fL (7.4-10.4); PLATELET COUNT 88 x10^3/uL (130-400); RED BLOOD COUNT 2.14 x10^6/uL (4.38-5.82); RED CELL DISTRIBUTION WIDTH 15.1 % (9.4-14.8)
[2018-07-17 05:57] LABS: BASOPHILS # (AUTO) 0.01 x10^3/uL (0-0.1); BASOPHILS % (AUTO) 0 % (0-1); EOSINOPHILS # (AUTO) 0.06 x10^3/uL (0-0.4); EOSINOPHILS % (AUTO) 1 % (1-7); LYMPHOCYTES # (AUTO) 0.74 x10^3/uL (1-3.4); LYMPHOCYTES % (AUTO) 17 % (22-44); MD SCAN; MONOCYTES # (AUTO) 0.54 x10^3/uL (0.2-0.8); MONOCYTES % (AUTO) 12 % (2-9); NEUTROPHILS # (AUTO) 3.07 x10^3/uL (1.8-6.8); NEUTROPHILS % (AUTO) 69 % (42-75)
[2018-07-17] MEDS: DIPHENHYDRAMINE 50 MG CAPSULE PO PRN (06:45)
[2018-07-17] MEDS: HEPARIN 5,000 UNITS/ML, 1ML SQ SCH ×2 (08:11→20:06)
[2018-07-17] MEDS: SEVELAMER CARBONATE 800MG TAB PO SCH ×3 (08:11→17:24)
[2018-07-17] MEDS ORDERED: DARBEPOETIN 100 MCG/ML SQ SCH (10:00)
[2018-07-17] MEDS: NICOTINE 21 MG/24 HR PATCH.TD24 TD SCH (20:06)
[2018-07-18] MEDS: SODIUM CHLORIDE 0.9% 1,000 ML IV SCH ×2 (00:32→08:25)
[2018-07-18 01:09] VITALS: BP 119/66
[2018-07-18] MEDS: VANCOMYCIN 50 MG/ML ORAL SUSP PO SCH ×5 (02:05→21:12)
[2018-07-18 05:51] LABS: MEAN CORPUSCULAR HEMOGLOBIN 33.3 pg (27.5-34.5); MEAN CORPUSCULAR HGB CONC 33.6 g/dL (33.2-36.2); MEAN CORPUSCULAR VOLUME 98.9 fL (81-97); MEAN PLATELET VOLUME 9.6 fL (7.4-10.4); PLATELET COUNT 90 x10^3/uL (130-400); RED BLOOD COUNT 2.28 x10^6/uL (4.38-5.82); RED CELL DISTRIBUTION WIDTH 15.1 % (9.4-14.8)
[2018-07-18 06:03] LABS: CHLORIDE 108 mmol/L (98-107)
[2018-07-18 06:07] LABS: HEMOGRAM NOTE RECHECKED
[2018-07-18 06:10] LABS: ALBUMIN 2.3 g/dL (3.4-5.0); ANION GAP 9 mmol/L (5-15); CALCIUM 8.1 mg/dL (8.5-10.1)
[2018-07-18 06:47] LABS: BASOPHILS # (AUTO) 0.01 x10^3/uL (0-0.1); BASOPHILS % (AUTO) 0 % (0-1); EOSINOPHILS # (AUTO) 0.06 x10^3/uL (0-0.4); EOSINOPHILS % (AUTO) 1 % (1-7); LYMPHOCYTES # (AUTO) 0.95 x10^3/uL (1-3.4); LYMPHOCYTES % (AUTO) 18 % (22-44); MD SCAN; MONOCYTES # (AUTO) 0.63 x10^3/uL (0.2-0.8); MONOCYTES % (AUTO) 12 % (2-9); NEUTROPHILS # (AUTO) 3.67 x10^3/uL (1.8-6.8); NEUTROPHILS % (AUTO) 69 % (42-75)
[2018-07-18 07:45] VITALS: BP 127/73
[2018-07-18] MEDS: SEVELAMER CARBONATE 800MG TAB PO SCH ×4 (08:25→17:54)
[2018-07-18] MEDS: HEPARIN 5,000 UNITS/ML, 1ML SQ SCH ×2 (08:29→21:00)
[2018-07-18 13:20] VITALS: BP 146/79
[2018-07-18] MEDS: DAPTOMYCIN 425 MG in SODIUM CHLORIDE 0.9% 100 ML IVPB SCH (13:53)
[2018-07-18] MEDS: DIPHENHYDRAMINE 50 MG CAPSULE PO PRN (17:53)
[2018-07-18 18:54] VITALS: BP 144/76
[2018-07-18] MEDS: NICOTINE 21 MG/24 HR PATCH.TD24 TD SCH (21:12)
[2018-07-19 00:50] VITALS: BP 134/75
[2018-07-19] MEDS: VANCOMYCIN 50 MG/ML ORAL SUSP PO SCH ×3 (03:00→21:02)
[2018-07-19 05:49] LABS: MEAN CORPUSCULAR HEMOGLOBIN 33.6 pg (27.5-34.5); MEAN CORPUSCULAR HGB CONC 34.1 g/dL (33.2-36.2); MEAN CORPUSCULAR VOLUME 98.6 fL (81-97); MEAN PLATELET VOLUME 9.5 fL (7.4-10.4); PLATELET COUNT 95 x10^3/uL (130-400); RED BLOOD COUNT 2.36 x10^6/uL (4.38-5.82); RED CELL DISTRIBUTION WIDTH 15.2 % (9.4-14.8)
[2018-07-19 06:01] LABS: ALBUMIN 2.4 g/dL (3.4-5.0); ANION GAP 10 mmol/L (5-15); CALCIUM 8.5 mg/dL (8.5-10.1); CHLORIDE 110 mmol/L (98-107)
[2018-07-19 06:05] LABS: HCT (SEDRATE) 23.3 % (39.2-51.8)
[2018-07-19 06:10] LABS: ALANINE AMINOTRANSFERASE 16 U/L (12-78); ALKALINE PHOSPHATASE 106 U/L (45-117); BILIRUBIN,TOTAL 1.3 mg/dL (0.2-1.0); CREATININE 4.68 mg/dL (0.7-1.3); TOTAL PROTEIN 7.6 g/dL (6.4-8.2)
[2018-07-19 07:09] VITALS: BP 130/73
[2018-07-19 07:40] LABS: BASOPHILS # (AUTO) 0.01 x10^3/uL (0-0.1); BASOPHILS % (AUTO) 0 % (0-1); EOSINOPHILS # (AUTO) 0.16 x10^3/uL (0-0.4); EOSINOPHILS % (AUTO) 3 % (1-7); LYMPHOCYTES # (AUTO) 0.88 x10^3/uL (1-3.4); LYMPHOCYTES % (AUTO) 14 % (22-44); MD SCAN; MONOCYTES # (AUTO) 0.54 x10^3/uL (0.2-0.8); MONOCYTES % (AUTO) 9 % (2-9); NEUTROPHILS # (AUTO) 4.72 x10^3/uL (1.8-6.8); NEUTROPHILS % (AUTO) 75 % (42-75)
[2018-07-19] MEDS: SEVELAMER CARBONATE 800MG TAB PO SCH ×3 (08:48→17:00)
[2018-07-19] MEDS: HEPARIN 5,000 UNITS/ML, 1ML SQ SCH ×2 (08:51→21:00)
[2018-07-19 13:43] VITALS: BP 148/73
[2018-07-19] MEDS ORDERED: LIDOCAINE-MPF 1%, 5ML ONE (15:21)
[2018-07-19 20:08] VITALS: BP 149/77
[2018-07-19] MEDS: NICOTINE 21 MG/24 HR PATCH.TD24 TD SCH (21:02)
[2018-07-19] MEDS: DIPHENHYDRAMINE 50 MG CAPSULE PO PRN (21:02)
[2018-07-20 03:55] VITALS: BP 136/72
[2018-07-20 05:49] VITALS: BP 147/74
[2018-07-20] MEDS: CARVEDILOL 3.125 MG TABLET PO SCH ×2 (05:50→17:11)
[2018-07-20 05:59] LABS: BASOPHILS # (AUTO) 0.02 x10^3/uL (0-0.1); BASOPHILS % (AUTO) 0 % (0-1); EOSINOPHILS # (AUTO) 0.21 x10^3/uL (0-0.4); EOSINOPHILS % (AUTO) 4 % (1-7); LYMPHOCYTES # (AUTO) 1.44 x10^3/uL (1-3.4); LYMPHOCYTES % (AUTO) 27 % (22-44); MD NO; MEAN CORPUSCULAR HEMOGLOBIN 33.5 pg (27.5-34.5); MEAN CORPUSCULAR HGB CONC 33.7 g/dL (33.2-36.2); MEAN CORPUSCULAR VOLUME 99.5 fL (81-97); MEAN PLATELET VOLUME 10.2 fL (7.4-10.4); MONOCYTES # (AUTO) 0.49 x10^3/uL (0.2-0.8); MONOCYTES % (AUTO) 9 % (2-9); NEUTROPHILS # (AUTO) 3.24 x10^3/uL (1.8-6.8); NEUTROPHILS % (AUTO) 60 % (42-75); PLATELET COUNT 102 x10^3/uL (130-400); RED BLOOD COUNT 2.57 x10^6/uL (4.38-5.82); RED CELL DISTRIBUTION WIDTH 15.7 % (9.4-14.8)
[2018-07-20 06:14] LABS: ALANINE AMINOTRANSFERASE 17 U/L (12-78); ALBUMIN 2.3 g/dL (3.4-5.0); ANION GAP 8 mmol/L (5-15); CALCIUM 8.2 mg/dL (8.5-10.1); CHLORIDE 108 mmol/L (98-107)
[2018-07-20 06:16] LABS: ALKALINE PHOSPHATASE 102 U/L (45-117); BILIRUBIN,TOTAL 1.2 mg/dL (0.2-1.0); TOTAL PROTEIN 7.7 g/dL (6.4-8.2)
[2018-07-20] MEDS: SEVELAMER CARBONATE 800MG TAB PO SCH ×3 (08:00→17:11)
[2018-07-20] MEDS ORDERED: LOSARTAN 25MG TABLET PO SCH (09:00)
[2018-07-20] MEDS: HEPARIN 5,000 UNITS/ML, 1ML SQ SCH ×2 (09:00→19:55)
[2018-07-20 09:41] VITALS: BP 148/76
[2018-07-20] MEDS: LOSARTAN 25MG TABLET PO SCH (09:43)
[2018-07-20] MEDS: VANCOMYCIN 50 MG/ML ORAL SUSP PO SCH ×4 (09:43→19:55)
[2018-07-20] MEDS: DIPHENHYDRAMINE 50 MG CAPSULE PO PRN (13:16)
[2018-07-20 13:21] VITALS: BP 152/74
[2018-07-20] MEDS ORDERED: LIDOCAINE-MPF 1%, 5ML ONE ×2 (13:52)
[2018-07-20] MEDS ORDERED: FENTANYL PF 100 MCG/2ML ONE ×2 (13:54→13:55)
[2018-07-20] MEDS ORDERED: NALOXONE 1 MG/ML, 2ML ONE (13:55)
[2018-07-20] MEDS ORDERED: FLUMAZENIL 0.1 MG/1 ML, 5ML ONE (13:55)
[2018-07-20] MEDS ORDERED: MIDAZOLAM 1 MG/ML, 5ML ONE (13:55)
[2018-07-20] MEDS: DAPTOMYCIN 425 MG in SODIUM CHLORIDE 0.9% 100 ML IVPB SCH (14:43)
[2018-07-20 17:10] VITALS: BP 146/75
[2018-07-20 19:31] VITALS: BP 160/80
[2018-07-20] MEDS: NICOTINE 21 MG/24 HR PATCH.TD24 TD SCH (19:53)
[2018-07-21] MEDS: DIPHENHYDRAMINE 50 MG CAPSULE PO PRN ×2 (01:54→15:03)
[2018-07-21 02:30] VITALS: BP 135/81
[2018-07-21] MEDS: VANCOMYCIN 50 MG/ML ORAL SUSP PO SCH ×5 (02:38→21:11)
[2018-07-21 05:16] VITALS: BP 149/74
[2018-07-21] MEDS: CARVEDILOL 3.125 MG TABLET PO SCH ×2 (05:17→18:42)
[2018-07-21 05:54] LABS: BASOPHILS # (AUTO) 0.02 x10^3/uL (0-0.1); BASOPHILS % (AUTO) 0 % (0-1); EOSINOPHILS # (AUTO) 0.24 x10^3/uL (0-0.4); EOSINOPHILS % (AUTO) 3 % (1-7); LYMPHOCYTES % (AUTO) 20 % (22-44); MD NO; MEAN CORPUSCULAR VOLUME 100.2 fL (81-97); MEAN PLATELET VOLUME 10.2 fL (7.4-10.4); MONOCYTES # (AUTO) 0.56 x10^3/uL (0.2-0.8); MONOCYTES % (AUTO) 7 % (2-9); NEUTROPHILS # (AUTO) 5.54 x10^3/uL (1.8-6.8); NEUTROPHILS % (AUTO) 70 % (42-75); PLATELET COUNT 128 x10^3/uL (130-400); RED CELL DISTRIBUTION WIDTH 15.2 % (9.4-14.8)
[2018-07-21 05:57] LABS: ALANINE AMINOTRANSFERASE 16 U/L (12-78); ALBUMIN 2.4 g/dL (3.4-5.0); ANION GAP 6 mmol/L (5-15); CALCIUM 8.4 mg/dL (8.5-10.1); CHLORIDE 109 mmol/L (98-107); CREATININE 4.35 mg/dL (0.7-1.3)
[2018-07-21 05:59] LABS: ALKALINE PHOSPHATASE 92 U/L (45-117); TOTAL PROTEIN 7.6 g/dL (6.4-8.2)
[2018-07-21] MEDS: HEPARIN 5,000 UNITS/ML, 1ML SQ SCH ×2 (09:00→21:00)
[2018-07-21] MEDS: SEVELAMER CARBONATE 800MG TAB PO SCH ×3 (09:42→16:52)
[2018-07-21] MEDS: LOSARTAN 25MG TABLET PO SCH (09:42)
[2018-07-21 09:47] VITALS: BP 135/81
[2018-07-21 14:00] VITALS: BP 135/81
[2018-07-21 16:26] VITALS: BP 160/80
[2018-07-21] MEDS: DAPTOMYCIN 425 MG in SODIUM CHLORIDE 0.9% 100 ML IV SCH (16:51)
[2018-07-21 18:51] VITALS: BP 143/77
[2018-07-21] MEDS: NICOTINE 21 MG/24 HR PATCH.TD24 TD SCH (21:10)
[2018-07-22 00:46] VITALS: BP 145/70
[2018-07-22] MEDS: VANCOMYCIN 50 MG/ML ORAL SUSP PO SCH ×4 (03:48→21:41)
[2018-07-22] MEDS: DIPHENHYDRAMINE 50 MG CAPSULE PO PRN ×2 (03:52→19:38)
[2018-07-22 05:08] LABS: BASOPHILS # (AUTO) 0.01 x10^3/uL (0-0.1); BASOPHILS % (AUTO) 0 % (0-1); EOSINOPHILS # (AUTO) 0.22 x10^3/uL (0-0.4); EOSINOPHILS % (AUTO) 2 % (1-7); LYMPHOCYTES # (AUTO) 1.23 x10^3/uL (1-3.4); LYMPHOCYTES % (AUTO) 12 % (22-44); MD NO; MEAN CORPUSCULAR HGB CONC 32.5 g/dL (33.2-36.2); MEAN CORPUSCULAR VOLUME 101.3 fL (81-97); MEAN PLATELET VOLUME 10.2 fL (7.4-10.4); MONOCYTES # (AUTO) 0.55 x10^3/uL (0.2-0.8); MONOCYTES % (AUTO) 5 % (2-9); NEUTROPHILS # (AUTO) 8.15 x10^3/uL (1.8-6.8); NEUTROPHILS % (AUTO) 80 % (42-75); PLATELET COUNT 141 x10^3/uL (130-400); RED BLOOD COUNT 2.66 x10^6/uL (4.38-5.82); RED CELL DISTRIBUTION WIDTH 15.4 % (9.4-14.8)
[2018-07-22 05:12] LABS: CHLORIDE 109 mmol/L (98-107)
[2018-07-22 05:22] LABS: ALANINE AMINOTRANSFERASE 15 U/L (12-78); ALBUMIN 2.5 g/dL (3.4-5.0); ALKALINE PHOSPHATASE 91 U/L (45-117); ANION GAP 8 mmol/L (5-15); BILIRUBIN,TOTAL 1.3 mg/dL (0.2-1.0); CALCIUM 8.5 mg/dL (8.5-10.1); CREATININE 4.69 mg/dL (0.7-1.3); TOTAL PROTEIN 7.9 g/dL (6.4-8.2)
[2018-07-22 06:08] VITALS: BP 152/70
[2018-07-22] MEDS: CARVEDILOL 3.125 MG TABLET PO SCH ×2 (06:10→17:48)
[2018-07-22 07:05] VITALS: BP 153/78
[2018-07-22] MEDS: LOSARTAN 25MG TABLET PO SCH (07:41)
[2018-07-22] MEDS: SEVELAMER CARBONATE 800MG TAB PO SCH ×3 (07:41→17:48)
[2018-07-22] MEDS: HEPARIN 5,000 UNITS/ML, 1ML SQ SCH ×2 (07:42→21:00)
[2018-07-22] MEDS ORDERED: LIDOCAINE-MPF 1%, 5ML ONE (13:40)
[2018-07-22] MEDS ORDERED: MIDAZOLAM 1 MG/ML, 5ML ONE (14:00)
[2018-07-22] MEDS ORDERED: FLUMAZENIL 0.1 MG/1 ML, 5ML ONE (14:00)
[2018-07-22] MEDS ORDERED: NALOXONE 1 MG/ML, 2ML ONE (14:01)
[2018-07-22] MEDS ORDERED: FENTANYL PF 100 MCG/2ML ONE (14:12)
[2018-07-22] MEDS: DAPTOMYCIN 425 MG in SODIUM CHLORIDE 0.9% 100 ML IV SCH (17:48)
[2018-07-22 21:14] VITALS: BP 147/71
[2018-07-22] MEDS: NICOTINE 21 MG/24 HR PATCH.TD24 TD SCH (21:41)
[2018-07-23] MEDS: VANCOMYCIN 50 MG/ML ORAL SUSP PO SCH ×2 (03:03→09:00)
[2018-07-23 03:28] VITALS: BP 167/58
[2018-07-23 05:14] LABS: BASOPHILS # (AUTO) 0.05 x10^3/uL (0-0.1); BASOPHILS % (AUTO) 1 % (0-1); EOSINOPHILS # (AUTO) 0.22 x10^3/uL (0-0.4); EOSINOPHILS % (AUTO) 2 % (1-7); LYMPHOCYTES # (AUTO) 1.42 x10^3/uL (1-3.4); LYMPHOCYTES % (AUTO) 14 % (22-44); MD NO; MEAN CORPUSCULAR HEMOGLOBIN 33.1 pg (27.5-34.5); MEAN CORPUSCULAR HGB CONC 32.8 g/dL (33.2-36.2); MEAN CORPUSCULAR VOLUME 100.9 fL (81-97); MEAN PLATELET VOLUME 10.2 fL (7.4-10.4); MONOCYTES # (AUTO) 0.67 x10^3/uL (0.2-0.8); MONOCYTES % (AUTO) 7 % (2-9); NEUTROPHILS % (AUTO) 77 % (42-75); PLATELET COUNT 173 x10^3/uL (130-400); RED BLOOD COUNT 2.68 x10^6/uL (4.38-5.82); RED CELL DISTRIBUTION WIDTH 15.7 % (9.4-14.8)
[2018-07-23 05:18] LABS: ALBUMIN 2.4 g/dL (3.4-5.0); ANION GAP 9 mmol/L (5-15); CALCIUM 8.3 mg/dL (8.5-10.1); CHLORIDE 109 mmol/L (98-107)
[2018-07-23 05:20] LABS: ALANINE AMINOTRANSFERASE 13 U/L (12-78); ALKALINE PHOSPHATASE 88 U/L (45-117); BILIRUBIN,TOTAL 1.2 mg/dL (0.2-1.0); CREATININE 4.98 mg/dL (0.7-1.3); TOTAL PROTEIN 7.6 g/dL (6.4-8.2)
[2018-07-23 05:57] VITALS: BP 160/78
[2018-07-23] MEDS: CARVEDILOL 3.125 MG TABLET PO SCH (06:00)
[2018-07-23 07:50] VITALS: BP 141/73
[2018-07-23] MEDS: LOSARTAN 25MG TABLET PO SCH (09:00)
[2018-07-23] MEDS: HEPARIN 5,000 UNITS/ML, 1ML SQ SCH (09:00)
[2018-07-23] MEDS: SEVELAMER CARBONATE 800MG TAB PO SCH ×2 (09:01→12:00)
== END 2018-07-23 18:14 | disposition left against medical advice (07) | DRG 871 ==
LOC: ED 16:38 → EDIP 17:54 → 5SO 20:11 → 3NE 07-20 20:33
PROVIDERS: ADMIT Internal Medicine; ATTEND Internal Medicine
PROC: 5A1D70Z Performance of Urinary Filtration, Intermittent, Less than 6 Hours Per Day (ICD-10-PCS; 2018-07-16)
PROC: 30233N1 Transfusion of Nonautologous Red Blood Cells into Peripheral Vein, Percutaneous Approach (ICD-10-PCS; 2018-07-17)
PROC: 5A1D70Z Performance of Urinary Filtration, Intermittent, Less than 6 Hours Per Day (ICD-10-PCS; 2018-07-19)
PROC: 0JH63XZ Insertion of Tunneled Vascular Access Device into Chest Subcutaneous Tissue and Fascia, Percutaneous Approach (ICD-10-PCS; principal; 2018-07-22)
PROC: 02HV33Z Insertion of Infusion Device into Superior Vena Cava, Percutaneous Approach (ICD-10-PCS; 2018-07-22)
PROC: B5181ZA Fluoroscopy of Superior Vena Cava using Low Osmolar Contrast, Guidance (ICD-10-PCS; 2018-07-22)
PROC: B548ZZA Ultrasonography of Superior Vena Cava, Guidance (ICD-10-PCS; 2018-07-22)
PROC: 5A1D70Z Performance of Urinary Filtration, Intermittent, Less than 6 Hours Per Day (ICD-10-PCS; 2018-07-23)
DX: A41.02 Sepsis due to Methicillin resistant Staphylococcus aureus (principal); N18.6 End stage renal disease; E46 Unspecified protein-calorie malnutrition; E87.1 Hypo-osmolality and hyponatremia; E87.2 Acidosis; I13.2 Hypertensive heart and chronic kidney disease with heart failure and with stage 5 chronic kidney disease, or end stage renal disease; I42.9 Cardiomyopathy, unspecified; I50.22 Chronic systolic (congestive) heart failure; M86.172 Other acute osteomyelitis, left ankle and foot; M86.672 Other chronic osteomyelitis, left ankle and foot; R65.20 Severe sepsis without septic shock; B96.89 Other specified bacterial agents as the cause of diseases classified elsewhere; B95.2 Enterococcus as the cause of diseases classified elsewhere; D50.9 Iron deficiency anemia, unspecified; D63.8 Anemia in other chronic diseases classified elsewhere; R79.1 Abnormal coagulation profile; E11.22 Type 2 diabetes mellitus with diabetic chronic kidney disease; E11.40 Type 2 diabetes mellitus with diabetic neuropathy, unspecified; E11.621 Type 2 diabetes mellitus with foot ulcer; E11.649 Type 2 diabetes mellitus with hypoglycemia without coma; E11.69 Type 2 diabetes mellitus with other specified complication; F17.210 Nicotine dependence, cigarettes, uncomplicated; I25.10 Atherosclerotic heart disease of native coronary artery without angina pectoris; I48.91 Unspecified atrial fibrillation; L97.509 Non-pressure chronic ulcer of other part of unspecified foot with unspecified severity; M10.9 Gout, unspecified; D53.9 Nutritional anemia, unspecified; D69.6 Thrombocytopenia, unspecified; N25.0 Renal osteodystrophy; Z16.21 Resistance to vancomycin; I25.2 Old myocardial infarction; Z80.9 Family history of malignant neoplasm, unspecified; Z83.3 Family history of diabetes mellitus; Z86.14 Personal history of Methicillin resistant Staphylococcus aureus infection; Z86.19 Personal history of other infectious and parasitic diseases; Z86.74 Personal history of sudden cardiac arrest; Z89.422 Acquired absence of other left toe(s); Z91.15 Patient's noncompliance with renal dialysis; Z91.19 Patient's noncompliance with other medical treatment and regimen; Z99.2 Dependence on renal dialysis; Z59.0 Homelessness; Z79.82 Long term (current) use of aspirin; Z53.21 Procedure and treatment not carried out due to patient leaving prior to being seen by health care provider
CPT/HCPCS: 36415; 77001; 84145; 99285; J3370; 36565; 36589; 71045; 76937; 80053; 80069; 80202; 81001; 82306; 82550; 82607; 82728; 82962; 83540; 83550; 83605; 83735; 83970; 84100; 84550; 85014; 85018; 85025; 85610; 85651; 86140; 86850; 86900; 86923; 87040; 87070; 87075; 87077; 87086; 87186; 87205; 87324; 87493; 93005; 93306; 96365; 99156; 99157; G0378; J0878; J0881; J2250; J2405; J2543; J2704; J3010; C1750; J1642; J2310; J7030; P9016

== ENCOUNTER 2018-07-29 10:42 | Outpatient (CLI) | payer MEDICAID ==
[~2018-07-29 10:42] MED LIST changes: +ASPI-650 PO
== END 2018-07-29 23:59 | disposition home or self-care (01) ==
LOC: WOUND 10:42
PROVIDERS: ATTEND Family Medicine
DX: E11.621 Type 2 diabetes mellitus with foot ulcer (principal); L97.521 Non-pressure chronic ulcer of other part of left foot limited to breakdown of skin; L97.511 Non-pressure chronic ulcer of other part of right foot limited to breakdown of skin; I87.2 Venous insufficiency (chronic) (peripheral); E11.42 Type 2 diabetes mellitus with diabetic polyneuropathy; E11.52 Type 2 diabetes mellitus with diabetic peripheral angiopathy with gangrene; I96 Gangrene, not elsewhere classified; E11.21 Type 2 diabetes mellitus with diabetic nephropathy; E11.69 Type 2 diabetes mellitus with other specified complication; M86.171 Other acute osteomyelitis, right ankle and foot; M86.172 Other acute osteomyelitis, left ankle and foot; I13.2 Hypertensive heart and chronic kidney disease with heart failure and with stage 5 chronic kidney disease, or end stage renal disease; I50.42 Chronic combined systolic (congestive) and diastolic (congestive) heart failure; E11.22 Type 2 diabetes mellitus with diabetic chronic kidney disease; I50.9 Heart failure, unspecified; N18.6 End stage renal disease; L84 Corns and callosities; G89.29 Other chronic pain; I48.91 Unspecified atrial fibrillation; E43 Unspecified severe protein-calorie malnutrition; F17.210 Nicotine dependence, cigarettes, uncomplicated; Z99.2 Dependence on renal dialysis; Z79.4 Long term (current) use of insulin; Z89.411 Acquired absence of right great toe; Z89.412 Acquired absence of left great toe; Z89.422 Acquired absence of other left toe(s); Z79.899 Other long term (current) drug therapy; Z91.14 Patient's other noncompliance with medication regimen; Z86.73 Personal history of transient ischemic attack (TIA), and cerebral infarction without residual deficits
CPT/HCPCS: 99214

== ENCOUNTER → 2018-08-01 | Outpatient (CLI) | payer MEDICAID | END | disposition home or self-care (01) | LOC: WOUND 14:08 | PROVIDERS: ATTEND Internal Medicine Cardiovascular Disease | DX: E11.621 Type 2 diabetes mellitus with foot ulcer (principal); L97.511 Non-pressure chronic ulcer of other part of right foot limited to breakdown of skin; L97.521 Non-pressure chronic ulcer of other part of left foot limited to breakdown of skin; I87.2 Venous insufficiency (chronic) (peripheral); E43 Unspecified severe protein-calorie malnutrition; E11.52 Type 2 diabetes mellitus with diabetic peripheral angiopathy with gangrene; I96 Gangrene, not elsewhere classified; E11.69 Type 2 diabetes mellitus with other specified complication; M86.171 Other acute osteomyelitis, right ankle and foot; M86.172 Other acute osteomyelitis, left ankle and foot; M86.672 Other chronic osteomyelitis, left ankle and foot; E11.649 Type 2 diabetes mellitus with hypoglycemia without coma; E11.21 Type 2 diabetes mellitus with diabetic nephropathy; E11.42 Type 2 diabetes mellitus with diabetic polyneuropathy; I13.2 Hypertensive heart and chronic kidney disease with heart failure and with stage 5 chronic kidney disease, or end stage renal disease; I50.42 Chronic combined systolic (congestive) and diastolic (congestive) heart failure; E11.22 Type 2 diabetes mellitus with diabetic chronic kidney disease; N18.6 End stage renal disease; L84 Corns and callosities; G89.29 Other chronic pain; I48.91 Unspecified atrial fibrillation; I42.9 Cardiomyopathy, unspecified; M10.9 Gout, unspecified; I25.2 Old myocardial infarction; I25.10 Atherosclerotic heart disease of native coronary artery without angina pectoris; F17.210 Nicotine dependence, cigarettes, uncomplicated; Z99.2 Dependence on renal dialysis; Z79.4 Long term (current) use of insulin; Z89.411 Acquired absence of right great toe; Z89.422 Acquired absence of other left toe(s); Z89.412 Acquired absence of left great toe; Z79.899 Other long term (current) drug therapy; Z79.82 Long term (current) use of aspirin; Z86.19 Personal history of other infectious and parasitic diseases; Z91.14 Patient's other noncompliance with medication regimen; Z86.73 Personal history of transient ischemic attack (TIA), and cerebral infarction without residual deficits | CPT/HCPCS: 99213 ==

== ENCOUNTER → 2018-08-05 | Outpatient (CLI) | payer MEDICAID | END | disposition home or self-care (01) | LOC: WOUND 12:28 | PROVIDERS: ATTEND Internal Medicine Cardiovascular Disease | DX: E11.621 Type 2 diabetes mellitus with foot ulcer (principal); L97.526 Non-pressure chronic ulcer of other part of left foot with bone involvement without evidence of necrosis; L97.512 Non-pressure chronic ulcer of other part of right foot with fat layer exposed; I87.2 Venous insufficiency (chronic) (peripheral); E11.42 Type 2 diabetes mellitus with diabetic polyneuropathy; E11.52 Type 2 diabetes mellitus with diabetic peripheral angiopathy with gangrene; I96 Gangrene, not elsewhere classified; E11.21 Type 2 diabetes mellitus with diabetic nephropathy; E11.69 Type 2 diabetes mellitus with other specified complication; M86.171 Other acute osteomyelitis, right ankle and foot; M86.172 Other acute osteomyelitis, left ankle and foot; I13.2 Hypertensive heart and chronic kidney disease with heart failure and with stage 5 chronic kidney disease, or end stage renal disease; I50.42 Chronic combined systolic (congestive) and diastolic (congestive) heart failure; E11.22 Type 2 diabetes mellitus with diabetic chronic kidney disease; N18.6 End stage renal disease; L84 Corns and callosities; G89.29 Other chronic pain; I48.91 Unspecified atrial fibrillation; E43 Unspecified severe protein-calorie malnutrition; F17.210 Nicotine dependence, cigarettes, uncomplicated; Z99.2 Dependence on renal dialysis; Z79.4 Long term (current) use of insulin; Z89.411 Acquired absence of right great toe; Z89.412 Acquired absence of left great toe; Z89.422 Acquired absence of other left toe(s); Z79.899 Other long term (current) drug therapy; Z91.14 Patient's other noncompliance with medication regimen; Z86.73 Personal history of transient ischemic attack (TIA), and cerebral infarction without residual deficits | CPT/HCPCS: 99213 ==

== ENCOUNTER → 2018-08-08 | Outpatient (CLI) | payer MEDICAID | END | disposition home or self-care (01) | LOC: WOUND 11:22 | PROVIDERS: ATTEND Internal Medicine | DX: E11.621 Type 2 diabetes mellitus with foot ulcer (principal); L97.526 Non-pressure chronic ulcer of other part of left foot with bone involvement without evidence of necrosis; L97.512 Non-pressure chronic ulcer of other part of right foot with fat layer exposed; I87.2 Venous insufficiency (chronic) (peripheral); E11.42 Type 2 diabetes mellitus with diabetic polyneuropathy; E11.52 Type 2 diabetes mellitus with diabetic peripheral angiopathy with gangrene; I96 Gangrene, not elsewhere classified; E11.21 Type 2 diabetes mellitus with diabetic nephropathy; E11.69 Type 2 diabetes mellitus with other specified complication; M86.171 Other acute osteomyelitis, right ankle and foot; M86.172 Other acute osteomyelitis, left ankle and foot; I13.2 Hypertensive heart and chronic kidney disease with heart failure and with stage 5 chronic kidney disease, or end stage renal disease; I50.42 Chronic combined systolic (congestive) and diastolic (congestive) heart failure; E11.22 Type 2 diabetes mellitus with diabetic chronic kidney disease; N18.6 End stage renal disease; L84 Corns and callosities; G89.29 Other chronic pain; I48.91 Unspecified atrial fibrillation; E43 Unspecified severe protein-calorie malnutrition; F17.210 Nicotine dependence, cigarettes, uncomplicated; Z99.2 Dependence on renal dialysis; Z79.4 Long term (current) use of insulin; Z89.411 Acquired absence of right great toe; Z89.412 Acquired absence of left great toe; Z89.422 Acquired absence of other left toe(s); Z79.899 Other long term (current) drug therapy; Z91.14 Patient's other noncompliance with medication regimen; Z86.73 Personal history of transient ischemic attack (TIA), and cerebral infarction without residual deficits | CPT/HCPCS: 99213 ==

== ENCOUNTER → 2018-08-12 | Outpatient (CLI) | payer MEDICAID | END | disposition home or self-care (01) | LOC: WOUND 13:15 | PROVIDERS: ATTEND Family Medicine | DX: E11.621 Type 2 diabetes mellitus with foot ulcer (principal); L97.526 Non-pressure chronic ulcer of other part of left foot with bone involvement without evidence of necrosis; L97.512 Non-pressure chronic ulcer of other part of right foot with fat layer exposed; I87.2 Venous insufficiency (chronic) (peripheral); E11.42 Type 2 diabetes mellitus with diabetic polyneuropathy; E11.52 Type 2 diabetes mellitus with diabetic peripheral angiopathy with gangrene; I96 Gangrene, not elsewhere classified; E11.21 Type 2 diabetes mellitus with diabetic nephropathy; E11.69 Type 2 diabetes mellitus with other specified complication; M86.171 Other acute osteomyelitis, right ankle and foot; M86.172 Other acute osteomyelitis, left ankle and foot; I13.2 Hypertensive heart and chronic kidney disease with heart failure and with stage 5 chronic kidney disease, or end stage renal disease; I50.42 Chronic combined systolic (congestive) and diastolic (congestive) heart failure; E11.22 Type 2 diabetes mellitus with diabetic chronic kidney disease; N18.6 End stage renal disease; L84 Corns and callosities; G89.29 Other chronic pain; I48.91 Unspecified atrial fibrillation; E43 Unspecified severe protein-calorie malnutrition; F17.210 Nicotine dependence, cigarettes, uncomplicated; Z99.2 Dependence on renal dialysis; Z79.4 Long term (current) use of insulin; Z89.411 Acquired absence of right great toe; Z89.412 Acquired absence of left great toe; Z89.422 Acquired absence of other left toe(s); Z79.899 Other long term (current) drug therapy; Z91.14 Patient's other noncompliance with medication regimen; Z86.73 Personal history of transient ischemic attack (TIA), and cerebral infarction without residual deficits | CPT/HCPCS: 11043 ==

== ENCOUNTER → 2018-08-15 | Outpatient (CLI) | payer MEDICAID | END | disposition home or self-care (01) | LOC: WOUND 11:11 | PROVIDERS: ATTEND Internal Medicine | DX: E11.621 Type 2 diabetes mellitus with foot ulcer (principal); L97.521 Non-pressure chronic ulcer of other part of left foot limited to breakdown of skin; L97.511 Non-pressure chronic ulcer of other part of right foot limited to breakdown of skin; I87.2 Venous insufficiency (chronic) (peripheral); E11.42 Type 2 diabetes mellitus with diabetic polyneuropathy; E11.52 Type 2 diabetes mellitus with diabetic peripheral angiopathy with gangrene; I96 Gangrene, not elsewhere classified; E11.21 Type 2 diabetes mellitus with diabetic nephropathy; E11.69 Type 2 diabetes mellitus with other specified complication; M86.171 Other acute osteomyelitis, right ankle and foot; M86.172 Other acute osteomyelitis, left ankle and foot; I13.2 Hypertensive heart and chronic kidney disease with heart failure and with stage 5 chronic kidney disease, or end stage renal disease; I50.42 Chronic combined systolic (congestive) and diastolic (congestive) heart failure; E11.22 Type 2 diabetes mellitus with diabetic chronic kidney disease; N18.6 End stage renal disease; L84 Corns and callosities; G89.29 Other chronic pain; I48.91 Unspecified atrial fibrillation; E43 Unspecified severe protein-calorie malnutrition; F17.210 Nicotine dependence, cigarettes, uncomplicated; Z99.2 Dependence on renal dialysis; Z79.4 Long term (current) use of insulin; Z89.411 Acquired absence of right great toe; Z89.412 Acquired absence of left great toe; Z89.422 Acquired absence of other left toe(s); Z79.899 Other long term (current) drug therapy; Z91.14 Patient's other noncompliance with medication regimen; Z86.73 Personal history of transient ischemic attack (TIA), and cerebral infarction without residual deficits | CPT/HCPCS: 99214 ==

== ENCOUNTER → 2018-08-19 | Outpatient (CLI) | payer MEDICAID | END | disposition home or self-care (01) | LOC: WOUND 10:57 | PROVIDERS: ATTEND Family Medicine | DX: E11.621 Type 2 diabetes mellitus with foot ulcer (principal); L97.526 Non-pressure chronic ulcer of other part of left foot with bone involvement without evidence of necrosis; L97.516 Non-pressure chronic ulcer of other part of right foot with bone involvement without evidence of necrosis; I87.2 Venous insufficiency (chronic) (peripheral); E11.42 Type 2 diabetes mellitus with diabetic polyneuropathy; E11.52 Type 2 diabetes mellitus with diabetic peripheral angiopathy with gangrene; I96 Gangrene, not elsewhere classified; E11.21 Type 2 diabetes mellitus with diabetic nephropathy; E11.69 Type 2 diabetes mellitus with other specified complication; M86.171 Other acute osteomyelitis, right ankle and foot; M86.172 Other acute osteomyelitis, left ankle and foot; I13.2 Hypertensive heart and chronic kidney disease with heart failure and with stage 5 chronic kidney disease, or end stage renal disease; E11.22 Type 2 diabetes mellitus with diabetic chronic kidney disease; I50.42 Chronic combined systolic (congestive) and diastolic (congestive) heart failure; N18.6 End stage renal disease; G89.29 Other chronic pain; L84 Corns and callosities; I48.91 Unspecified atrial fibrillation; E43 Unspecified severe protein-calorie malnutrition; F17.210 Nicotine dependence, cigarettes, uncomplicated; Z99.2 Dependence on renal dialysis; Z79.4 Long term (current) use of insulin; Z89.411 Acquired absence of right great toe; Z89.412 Acquired absence of left great toe; Z89.422 Acquired absence of other left toe(s); Z79.899 Other long term (current) drug therapy; Z91.14 Patient's other noncompliance with medication regimen; Z86.73 Personal history of transient ischemic attack (TIA), and cerebral infarction without residual deficits | CPT/HCPCS: 11042; 97597 ==

== ENCOUNTER 2020-06-21 14:41 | Emergency (ER) | payer MEDICARE, MEDICAID ==
[~2020-06-21] VITALS: Ht 182.9 cm; Wt 80.3 kg
[~2020-06-21 14:41] MED LIST changes: +ACID1TAB7 PO; +ASPI-1026 PO; -ASPI-650 PO; +CALC1TAB68 PO; +DAPT500V6 IV; +HYDR-3237 PO; -NICO-487 TD; +NICO-587 TD; +VANC1VIA36 PO
--- NOTE | 2020-06-21 14:58 | NUR ---
PATIENT BIB EMS WITH CHIEF C/O SOB AND FEVER. PATIENT AT DIALYSIS AND HAS ABOUT 1 LITER OFF AND STARTED EXPERIENCING SOB AND CHILLS. DIALYSIS STOPPED, PATIENT'S TEMP 101, SOB LASTED ABOUT 60-90 MINUTES. PATIENT MISSED DIALYSIS WEDNESDAY, LAST BP WAS 86/30. PER EMS PATIENT HAS DIALYSIS CATHETER REPLACED THIS PAST WEDNESDAY AT NOON. UPON ASSESSMENT PATIENT DENIES SOB, TEMP IS NOW 99.0, NADN, CONNECTED TO POLICE SERVICE TECHNICIAN, VSS, CALL LIGHT WITHIN REACH.
--- NOTE | 2020-06-21 15:52 | NUR ---
ERMD AT BEDSIDE FOR EVALUATION.
[2020-06-21] MEDS ORDERED: ACETAMINOPHEN 325 MG TABLET PO ONE (16:00)
[2020-06-21] MEDS ORDERED: CEFTRIAXONE 1,000 MG in DEXTROSE 5% 50 ML IVPB ONE (16:00)
[2020-06-21] MEDS ORDERED: SODIUM CHLORIDE FLUSH 10ML SYR IVF ONE (16:00)
[2020-06-21] MEDS ORDERED: ACETAMINOPHEN 325 MG TABLET ONE (16:02)
--- NOTE | 2020-06-21 16:27 | NUR ---
20 GAUGE IV STARTED RIGHT HAND, PATIENT MEDICATED PER eMAR, VSS, PATIENT IS REFUSING STRAIGHT CATH FOR URINE SAMPLE, STATES "YOU WON'T GET ANY FROM ME I HAD DIALYSIS TODAY." ERMD NOTIFIED.
[2020-06-21 16:36] LABS: BASOPHILS % (AUTO) 0 % (0-1); EOSINOPHILS % (AUTO) 1 % (1-7); LYMPHOCYTES % (AUTO) 9 % (22-44); MEAN CORPUSCULAR HEMOGLOBIN 33.1 pg (27.5-34.5); MEAN CORPUSCULAR HGB CONC 34.7 g/dL (33.2-36.2); MONOCYTES % (AUTO) 8 % (2-9); NEUTROPHILS % (AUTO) 81 % (42-75); PLATELET COUNT 92 x10^3/uL (130-400); RED BLOOD COUNT 2.89 x10^6/uL (4.38-5.82); RED CELL DISTRIBUTION WIDTH 14.2 % (9.4-14.8)
[2020-06-21 16:44] LABS: ALANINE AMINOTRANSFERASE 12 U/L (12-78); ANION GAP 8 mmol/L (5-15); CALCIUM 8.5 mg/dL (8.5-10.1); CHLORIDE 102 mmol/L (98-107); CREATININE 4.54 mg/dL (0.7-1.3)
[2020-06-21 16:45] LABS: MD NO
[2020-06-21 16:46] LABS: ALKALINE PHOSPHATASE 50 U/L (45-117); BILIRUBIN,TOTAL 0.9 mg/dL (0.2-1.0); TOTAL PROTEIN 7.5 g/dL (6.4-8.2)
[2020-06-21 17:27] VITALS: BP 104/65
--- NOTE | 2020-06-21 18:03 | NUR ---
IV removed with tip intact. Patient given discharge instructions and they have confirmed that they understand the instructions. Patient stable and ambulatory with steady gait from ED to private vehicle.
== END 2020-06-21 18:04 | disposition home or self-care (01) ==
LOC: ED 16:50
DX: E11.22 Type 2 diabetes mellitus with diabetic chronic kidney disease (principal); I12.0 Hypertensive chronic kidney disease with stage 5 chronic kidney disease or end stage renal disease; N18.6 End stage renal disease; N17.9 Acute kidney failure, unspecified; R50.9 Fever, unspecified; E11.65 Type 2 diabetes mellitus with hyperglycemia; I95.9 Hypotension, unspecified; E16.2 Hypoglycemia, unspecified; R06.02 Shortness of breath; F17.200 Nicotine dependence, unspecified, uncomplicated
CPT/HCPCS: 36415; 71045; 80053; 83605; 85025; 87040; 96365; 99284; J0696; 99285